=== PATIENT | female | born 1965 | race American Indian/Alaskan Native ===

== ENCOUNTER 2017-03-10 12:36 | Inpatient (IN) | payer MEDICAID ==
[2017-03-10 12:36] VITALS: BMI 21.9
--- NOTE | 2017-03-10 14:06 | C.PDOC ---
History Of Present Illness 52 y/o female with PMHx of anemia, hypertension, and CVA with residual right sided weakness, with history of symptomatic anemia with transfusion 2 months ago , sent to ER by PMD Dr. Shine for anemia. Patient also reports associated dizziness and palpitations. Denies fever, leg swelling, new weakness or numbness , nausea, vomiting, diarrhea, chest pain, shortness of breath, or other complaints. Time Seen by Provider: 03/10/17 13:34 Chief Complaint (Nursing): Abnormal Labs History Per: Patient History/Exam Limitations: no limitations Onset/Duration Of Symptoms: Days Current Symptoms Are (Timing): Still Present Recent travel outside of the [place]: No Past Medical History Reviewed: Historical Data, Nursing Documentation, Vital Signs Vital Signs: Last Vital Signs Temp 98.0 F 03/10/17 17:26 Pulse 91 H 03/10/17 17:26 Resp 20 03/10/17 17:26 BP 156/80 H 03/10/17 17:26 Pulse Ox 100 03/10/17 18:28 - Medical History PMH: Asthma, CVA, Diabetes, HTN - [facility] Procedures TRANSFUSE NONAUT RED BLOOD CELLS IN PERIPH VEIN, PERC (01/14/17) Family History: States: Unknown Family Hx - Social History Hx Alcohol Use: No Hx Substance Use: No Review Of Systems Except As Marked, All Systems Reviewed And Found Negative. Constitutional: Negative for: Fever, Chills Cardiovascular: Positive for: Other (elevated heart rate). Negative for: Chest Pain, Palpitations Respiratory: Negative for: Cough, Shortness of Breath, Wheezing Gastrointestinal: Negative for: Nausea, Vomiting, Abdominal Pain Skin: Negative for: Rash Neurological: Positive for: Dizziness. Negative for: Numbness, Headache Physical Exam - Physical Exam Appears: Non-toxic, No Acute Distress Skin: Warm, Dry Head: Atraumatic, Normacephalic Eye(s): bilateral: PERRL, EOMI, Conjunctiva Pale Nose: Normal Oral Mucosa: Moist Neck: Normal ROM, Supple Chest: Symmetrical Cardiovascular: Rhythm Regular, No Murmur Respiratory: Normal Breath Sounds, No Rales, No Rhonchi, No Wheezing Gastrointestinal/Abdominal: Soft, No Tenderness Extremity: Normal ROM, No Tenderness, Capillary Refill (< 2 sec.), No Swelling Neurological/Psych: Oriented x3, Normal Speech, Normal Cognition ED Course And Treatment - Laboratory Results Result Diagrams: 03/10/17 14:18 03/10/17 14:18 O2 Sat by Pulse Oximetry: 100 (RA) Pulse Ox Interpretation: Normal Progress Note: Case discussed with Dr. Shine who agrees upon plan of admission. Disposition - Disposition Disposition: HOSPITALIZED Disposition Time: 17:30 Condition: STABLE - Clinical Impression Clinical Impression: Symptomatic anemia, CHF (congestive heart failure) - PA / VOLUNTEER SERVICES COORDINATOR / Resident Statement MD/DO has reviewed & agrees with the documentation as recorded. - Scribe Statement The provider has reviewed the documentation as recorded by the Scribe Huber Verma All medical record entries made by the Sangeetha were at my direction and personally dictated by me. I have reviewed the chart and agree that the record accurately reflects my personal performance of the history, physical exam, medical decision making, and the department course for this patient. I have also personally directed, reviewed, and agree with the discharge instructions and disposition.
[2017-03-10 14:27] LABS: BASO % 0.4 % (0.0-2.0); EOS % 0.5 % (0.0-4.0); HEMATOCRIT 17.1 % (34.0-47.0); LYMPH # 2.3 K/uL (1.0-4.3); LYMPH % 32.5 % (20.0-40.0); MEAN CORPUSCULAR HGB CONC 30.7 g/dL (33.0-37.0); MEAN PLATELET VOLUME 8.6 fL (7.2-11.7); MONO # 0.5 K/uL (0.0-0.8); RED CELL DISTRIBUTION WIDTH 28.8 % (11.5-14.5)
[2017-03-10 14:33] LABS: CHLORIDE 99 mmol/L (98-107)
[2017-03-10 14:34] LABS: POTASSIUM 3.6 mmol/L (3.6-5.2); SODIUM 134 mmol/L (132-148)
[2017-03-10 14:35] LABS: MEAN CELL VOLUME 71.5 fL (81.0-99.0)
[2017-03-10 14:36] LABS: ALB/GLOB RATIO 1.1 (1.0-2.1); AST/SGOT 23 U/L (14-36); BILIRUBIN,TOTAL 0.5 mg/dL (0.2-1.3); BLOOD UREA NITROGEN 13 mg/dL (7-17); CARBON DIOXIDE 27 mmol/L (22-30); GFR AFRICAN-AMERICAN > 60; TOTAL PROTEIN 7.1 g/dL (6.3-8.3)
[2017-03-10 14:37] LABS: ALKALINE PHOSPHATASE 70 U/L (38-126); ALT/SGPT 26 U/L (9-52); CALCIUM 8.8 mg/dl (8.6-10.4); GLUCOSE,RANDOM 181 mg/dL (65-105)
[2017-03-10 14:41] LABS: INR 1.1
[2017-03-10] MEDS: Pantoprazole 80 MG in Sodium Chloride 0.9% 100 ML IVP SCH (20:30)
[2017-03-10] MEDS: (Lantus) Insulin Glargine, Recombinant SC SCH (23:38)
[2017-03-11] MEDS: Pantoprazole 80 MG in Sodium Chloride 0.9% 100 ML IVP SCH ×2 (04:17→17:39)
[2017-03-11 11:54] LABS: CHLORIDE 100 mmol/L (98-107); SODIUM 133 mmol/L (132-148)
[2017-03-11 11:57] LABS: BLOOD UREA NITROGEN 10 mg/dL (7-17); CARBON DIOXIDE 24 mmol/L (22-30); GFR AFRICAN-AMERICAN > 60
[2017-03-11 11:58] LABS: GLUCOSE,RANDOM 301 mg/dL (65-105)
--- NOTE | 2017-03-11 14:06 | US ---
Abdominal ultrasound History: Anemia. Comparison: None available. Technique: Real-time sonography was performed through the abdomen. Findings: Liver: 16.7 centimeters in length. Increased echogenicity of the hepatic parenchymal cortex suggestive for fatty infiltration versus hepatic parenchymal disease. Gallbladder appears preserved. Normal wall thickness of 1.7 millimeters. Common bile duct measures 3.2 millimeters, within normal limits. Limited visualization of the pancreas. Spleen measures 9.8 centimeters in length, within normal limits. Visualized aorta and IVC are preserved. Right kidney: 10.4 x 5.7 x 5.1 centimeters, within normal limits. Left Kidney: 11.3 x 6.0 x 4.7 centimeters, within normal limits. Impression: Increased echogenicity of the hepatic parenchymal cortex suggestive for fatty infiltration versus hepatic parenchymal disease. Clinical correlation. Limited visualization of the pancreas.
--- NOTE | 2017-03-11 14:07 | US ---
Pelvic ultrasound History: Menstrual bleeding. Comparison: None available. Technique: Real-time sonography was performed through the pelvis utilizing transabdominal and transvaginal techniques. Findings: Uterus: 16.5 x 6.9 x 0.8 centimeters. Heterogeneous echotexture. Anteverted. Heterogeneous lesion within the mid uterus measuring 4.4 x 3.3 x 4.4 centimeters suggestive for a prominent fibroid. Thickened and heterogeneous endometrium measuring 1.8 centimeters. No free fluid in the pelvic cul-de-sac. Right ovary: 3.9 x 2.7 x 3.3 centimeters. Normal flow. Left ovary: 3.0 x 2.2 x 2.9 centimeters. Normal flow. Impression: Thickened heterogeneous endometrium measuring up to 1.8 cm. Clinical correlation. 4.4 centimeter heterogeneous lesion in the mid uterus suggestive for a prominent fibroid lesion. Enlarged heterogeneous uterus.
[2017-03-11 17:55] LABS: BASO % 0.4 % (0.0-2.0); EOS # 0.1 K/uL (0.0-0.7); EOS % 1.3 % (0.0-4.0); HEMATOCRIT 26.5 % (34.0-47.0); LYMPH % 32.3 % (20.0-40.0); MEAN CORPUSCULAR HEMOGLOBIN 24.5 pg (27.0-31.0); MEAN CORPUSCULAR HGB CONC 31.8 g/dL (33.0-37.0); MEAN PLATELET VOLUME 8.8 fL (7.2-11.7); MONO # 0.5 K/uL (0.0-0.8); MONO % 8.1 % (0.0-10.0); NRBC % 0.2 % (0.0-2.0); RED CELL DISTRIBUTION WIDTH 25.5 % (11.5-14.5); WHITE BLOOD COUNT 6.2 K/uL (4.8-10.8)
[2017-03-11 17:56] LABS: MEAN CELL VOLUME 76.9 fL (81.0-99.0)
[2017-03-11 18:04] LABS: IRON 27 ug/dL (37-170)
--- NOTE | 2017-03-11 18:16 | CP.PCM.CON ---
History of Present Illness - History of Present Illness History of Present Illness: 52 year old female with a history of DM, CVA with right sided weakness, admitted with symptomatic anemia. The patient was to have a hgb of 5.3. She is currently s/p PRBC transfusion and reports to feeling better. She denies abnormal bleeding and bruising. She does not feel her periods are heavy. She denies chest pain and shortness of breath. Past medical history: CVA, DM Past surgical history: x 2 Family history: Denies hematologic and oncologic problems Social history: Denies tobacco, alcohol, and illicit drug use. Allergies: NKA Review of systems: All remaining review of systems including HEENT, cardiovascular, respiratory, gastrointestinal, genitourinary, musculoskeletal, dermatologic, neurologic, and psychiatric are negative unless mentioned in the HPI. Past Patient History - Past Medical History & Family History Past Medical History?: Yes - Past Social History Smoking Status: Never Smoked - CARDIAC Hx Hypertension: Yes - PULMONARY Hx Asthma: Yes - NEUROLOGICAL Hx Neurological Disorder: Yes HX Cerebrovascular Accident: Yes (11/2015) Hx Dizziness: No Hx Meningitis: No Hx Paralysis: No Hx Syncope: No Hx Vertigo: No - HEENT Hx HEENT Problems: No - ENDOCRINE/METABOLIC Hx Endocrine Disorders: Yes Hx Adrenal Cancer: No Hx Diabetes Insipidus: No Hx Diabetes Mellitus Type 1: Yes Hx Diabetes Mellitus Type 2: No Hx Systemic Lupus Erythematosus: No - HEMATOLOGICAL/ONCOLOGICAL Hx Blood Disorders: No - INTEGUMENTARY Hx Dermatological Problems: No - MUSCULOSKELETAL/RHEUMATOLOGICAL Hx Falls: No - GASTROINTESTINAL Hx Gastrointestinal Disorders: No - GENITOURINARY/GYNECOLOGICAL Hx Genitourinary Disorders: No - PSYCHIATRIC Hx Substance Use: No - SURGICAL HISTORY Hx Surgeries: Yes Hx Abdominal Aortic Aneurysm Repair: No Hx Amputation: No Hx Angiogram: No Hx Angioplasty: No Hx Arteriovenous Shunt: No Hx Arthroscopy: No Hx Bile Duct Stent: No Hx Breast Biopsy: No Hx Cataract Extraction: No Hx Cardiac Catheterization: No Hx Section: Yes (X2) Hx Dilation and Curettage: No Hx Eye Surgery: No Hx Femoral-Popliteal Bypass Graft: No Hx Gastric Bypass Surgery: No Hx Herniorrhaphy: No Hx Hysterectomy: No Hx Joint Replacement: No Hx Kidney Transplant: No Hx Liver Transplant: No Hx Mastectomy: No Hx Musculoskeletal Surgery: No Hx Open Heart Surgery: No Hx Open Reduction Internal Fixation: No Hx Orthopedic Surgery: No Hx Parathyroidectomy: No Hx Penile Implant: No Hx Pulmonary Surgery: No Hx Splenectomy: No Hx Thyroidectomy: No Hx Tubal Ligation: No Hx Valve Replacement: No Hx Vascular Surgery: No Hx Vascular Access Device: No - ANESTHESIA Hx Anesthesia: No Hx Anesthesia Reactions: No Hx Malignant Hyperthermia: No Meds Allergies/Adverse Reactions: Allergies Allergy/AdvReac Type Severity Reaction Status Date / Time No Known Allergies Allergy Verified 03/10/17 12:45 - Medications Medications: Current Medications Ferrous Sulfate (Feosol) 325 mg PO BID [facility] Last Admin: 03/11/17 17:34 Dose: 325 mg Pantoprazole Sodium 80 mg/ (Sodium Chloride) 100 mls @ 10 mls/hr IVP .Q10H [facility] PRN Reason: 8 MG/HR Last Admin: 03/11/17 17:39 Dose: 10 mls/hr Insulin Glargine (Lantus) 10 unit SC HS [facility] Last Admin: 03/10/17 23:38 Dose: 10 u Losartan Potassium (Cozaar) 100 mg PO DAILY [facility] Last Admin: 03/11/17 10:30 Dose: 100 mg Metoprolol Tartrate (Lopressor) 25 mg PO BID [facility] Last Admin: 03/11/17 17:39 Dose: 25 mg Physical Exam - Head Exam Head Exam: ATRAUMATIC - Eye Exam Eye Exam: Normal appearance - ENT Exam ENT Exam: Mucous Membranes Dry - Respiratory Exam Respiratory Exam: NORMAL BREATHING PATTERN - Cardiovascular Exam Cardiovascular Exam: +S1, +S2 - GI/Abdominal Exam GI & Abdominal Exam: Normal Bowel Sounds - Neurological Exam Neurological exam: Oriented x3 - Psychiatric Exam Psychiatric exam: Normal Affect, Normal Mood - Skin Skin Exam: Warm Results - Vital Signs Recent Vital Signs: Last Vital Signs Temp 98.4 F 03/11/17 17:22 Pulse 78 03/11/17 17:22 Resp 20 03/11/17 17:22 BP 176/90 H 03/11/17 17:39 Pulse Ox 100 03/11/17 17:22 - Labs Result Diagrams: 03/10/17 17:35 03/11/17 11:39 Labs: Laboratory Results - last 24 hr 03/10/17 03/10/17 03/11/17 17:35 21:52 07:30 WBC 6.2 RBC 3.44 L Hgb 8.4 L D Hct 26.5 L MCV 76.9 L D MCH 24.5 L MCHC 31.8 L RDW 25.5 H Plt Count 309 MPV 8.8 Neut % (Auto) 57.9 Lymph % (Auto) 32.3 [place] % (Auto) 8.1 Eos % (Auto) 1.3 Baso % (Auto) 0.4 Neut # 3.6 Lymph # 2.0 [place] # 0.5 Eos # 0.1 Baso # 0.0 Sodium Potassium Chloride Carbon Dioxide Anion Gap BUN Creatinine Est GFR ( Amer) Est GFR (Non-Af Amer) POC Glucose (mg/dL) 244 H 202 H Random Glucose Calcium Iron TIBC % Saturation 03/11/17 03/11/17 03/11/17 11:32 11:39 16:43 WBC RBC Hgb Hct MCV MCH MCHC RDW Plt Count MPV Neut % (Auto) Lymph % (Auto) [place] % (Auto) Eos % (Auto) Baso % (Auto) Neut # Lymph # [place] # Eos # Baso # Sodium 133 Potassium 5.0 Chloride 100 Carbon Dioxide 24 Anion Gap 15 BUN 10 Creatinine 0.5 L Est GFR ( Amer) > 60 Est GFR (Non-Af Amer) > 60 POC Glucose (mg/dL) 333 H 337 H Random Glucose 301 H Calcium 9.0 Iron TIBC % Saturation 03/11/17 17:35 WBC RBC Hgb Hct MCV MCH MCHC RDW Plt Count MPV Neut % (Auto) Lymph % (Auto) [place] % (Auto) Eos % (Auto) Baso % (Auto) Neut # Lymph # [place] # Eos # Baso # Sodium Potassium Chloride Carbon Dioxide Anion Gap BUN Creatinine Est GFR ( Amer) Est GFR (Non-Af Amer) POC Glucose (mg/dL) Random Glucose Calcium Iron 27 L TIBC 366 % Saturation 7 L Assessment & Plan (1) Anemia Assessment and Plan: history of iron deficiency anemia felt to be secondary to menorrhagia will repeat ferritin level s/p PRBC transfusion will start IV iron Thank you for this interesting consult. Status: Acute
[2017-03-11] MEDS: Ferric Sodium Gluconat Complex 62.5 mg/5 ml Vial IVPB SCH (19:21)
[2017-03-11 21:13] LABS: FOLATE > 20.0 ng/mL
[2017-03-11] MEDS: (Lantus) Insulin Glargine, Recombinant SC SCH (21:49)
[2017-03-12] MEDS: Pantoprazole 80 MG in Sodium Chloride 0.9% 100 ML IVP SCH ×2 (02:59→03:46)
--- NOTE | 2017-03-12 06:54 | HP ---
The patient is a 52-year-old female with history of hypertension, history of recent CVA and anemia. The patient was seen in my office about a week before weakness and shortness of breath on exert ion. Blood word was done on the patient that has shown that the patient has a very low hemoglobin th at was 6.4. For the whole week the patient was called, but there was no answer and the family was al so contacted. The patient came in again yesterday on her own and explained to her condition. The patient agreed to go to the Emergency Room for admission . ALLERGIES: The patient has no know allergies. PAST MEDICAL HISTORY: History of hypertension, history of CVA in the past, history of diabetes and g ait dysfunction. SOCIAL HISTORY: The patient has children, but no smoking or alcohol abuse. FAMILY HISTORY: There is no inherited disease. REVIEW OF SYSTEMS: RESPIRATORY: The patient had been having some shortness of breath on exertion. CARDIOVASCULAR: The patient is having some palpitations at times. GASTROINTESTINAL: The patient denied any melena and complained of some flatulence at times. GENITOURINARY: The patient complaining of . Actually, the patient has her menses as we speak. NEUROLOGIC: The patient feels very weak. PHYSICAL EXAMINATION: GENERAL: The patient is alert, awake and oriented. VITAL SIGNS: The blood pressure is 176/90, pulse 78, respirations 20, temperature is 98.4. EYES: The conjunctivae are very pale. NECK: Supple, no JVD. LUNGS: Clear. HEART: Tachycardic and positive murmur. ABDOMEN: Soft and nontender. No guarding or mass. The patient, as I mentioned, has her menses. EXTREMITIES: There is +1 pitting edema. LABORATORY: showed WBC 7, hemoglobin 5.3, hematocrit 17.1 and platelet 203. Coag: , INR 1.1, 26. Chemistry: Sodium 133, potassium 5, chloride 100, bicarb 24, BUN 10, creatinine 0.5, glucose is 301. Iron is 27. O2 saturation is 7. The patient will be admitted severe anemia, hypertension, diabetes and hyperlipidemia. The pat ient mentioned a history of CVA. The patient had a consult with barbara Flowers. Dalton Shine MD cc: [id number] TT: 03/11/2017 21:35:34 mn
[2017-03-12] MEDS: Ferric Sodium Gluconat Complex 62.5 mg/5 ml Vial IVPB SCH (09:53)
[2017-03-12] MEDS: (Novolog) Insulin Aspart, Recombinant 100 u/ml 10 ml vial SC SCH ×3 (12:49→22:52)
--- NOTE | 2017-03-12 19:31 | PN ---
DATE: 03/12/2017 SUBJECTIVE: Today, the patient is alert and awake. Denies any shortness of breath. No chest pain, no dizziness. The patient complaining only of generalized weakness. PHYSICAL EXAMINATION: VITAL SIGNS: The patient has a blood pressure of 170/79, pulse is 85, respirations 20, temperature 9 8.3. HEAD: Normocephalic. Conjunctivae is pinkish. LUNGS: Clear. HEART: Regular rate and rhythm. ABDOMEN: Soft, positive bowel sounds, nontender, no palpable mass. EXTREMITIES: There is no edema noted. LABORATORY DATA: The patient had some blood tests done. Today WBC is 6.2, hemoglobin 8.4, hematocri t 26.5 and platelet is 309. The white count is 2.1. Chemistry: Glucose is 200, iron 27, TIBC 366, . PLAN: We are going to give this patient IV iron and also stool for occult blood is not done. The zahraa dias has menses at this point. The case was discussed with Savanah Casey, the nurse practitioner, uriel cooper we are going also to verify with Dr. Lomeli to [facility] Dalton Shine MD cc: [id number] TT: 03/12/2017 19:30:56 Confirmation # [id number] Dictation # [id number] jeronimo
[2017-03-12] MEDS: (Lantus) Insulin Glargine, Recombinant SC SCH (22:52)
--- NOTE | 2017-03-13 00:34 | CARD ---
APPROVED REPORT EKG Measurement Heart [id number] <Conclusion> Normal sinus rhythm normal ecg
[2017-03-13 06:25] LABS: BASO % 0.3 % (0.0-2.0); EOS # 0.1 K/uL (0.0-0.7); EOS % 0.7 % (0.0-4.0); HEMATOCRIT 27.3 % (34.0-47.0); LYMPH # 1.3 K/uL (1.0-4.3); LYMPH % 12.1 % (20.0-40.0); MEAN CELL VOLUME 75.5 fL (81.0-99.0); MEAN CORPUSCULAR HEMOGLOBIN 23.7 pg (27.0-31.0); MEAN CORPUSCULAR HGB CONC 31.3 g/dL (33.0-37.0); MONO # 0.7 K/uL (0.0-0.8); MONO % 6.5 % (0.0-10.0); NRBC % 0.1 % (0.0-2.0); RED CELL DISTRIBUTION WIDTH 27.1 % (11.5-14.5); WHITE BLOOD COUNT 10.4 K/uL (4.8-10.8)
[2017-03-13 06:46] LABS: CHLORIDE 94 mmol/L (98-107); POTASSIUM 3.7 mmol/L (3.6-5.2); SODIUM 132 mmol/L (132-148)
[2017-03-13 06:49] LABS: BLOOD UREA NITROGEN 11 mg/dL (7-17); CARBON DIOXIDE 29 mmol/L (22-30); GFR AFRICAN-AMERICAN > 60; GLUCOSE,RANDOM 237 mg/dL (65-105)
[2017-03-13 08:03] VITALS: O2SAT 98
[2017-03-13] MEDS: (Novolog) Insulin Aspart, Recombinant 100 u/ml 10 ml vial SC SCH ×3 (08:27→17:17)
[2017-03-13] MEDS: Ferric Sodium Gluconat Complex 62.5 mg/5 ml Vial IVPB SCH (09:43)
[2017-03-13] MEDS ORDERED: Pantoprazole 40 mg EC Tab PO SCH (10:00)
--- NOTE | 2017-03-13 13:27 | CP.PCM.PN ---
Subjective - Date & Time of Evaluation Date of Evaluation: 03/13/17 Time of Evaluation: 13:00 - Subjective Subjective: Pt seen an d examined today states feels better, denies any chest pain, sob , dizziness, palpitations, headache hgb improved after PRBC transfusion and stable - 8.5>8.4>5.3 Objective - Vital Signs/Intake and Output Vital Signs (last 24 hours): Temp Pulse Resp BP Pulse Ox 98.6 F 83 17 158/84 H 98 03/13/17 07:20 03/13/17 07:20 03/13/17 07:20 03/13/17 07:20 03/13/17 07:20 - Medications Medications: Current Medications Ferric Sodium Gluconate Complex (Ferrlecit) 125 mg IVPB DAILY [facility] Stop: 03/15/17 10:01 Last Admin: 03/13/17 09:43 Dose: 125 mg Ferrous Sulfate (Feosol) 325 mg PO BID [facility] Last Admin: 03/13/17 09:43 Dose: 325 mg Hydrochlorothiazide (Hydrodiuril) 25 mg PO DAILY [facility] Last Admin: 03/13/17 09:43 Dose: 25 mg Insulin Aspart (Novolog) 0 unit SC [facility] PRN Reason: Protocol Last Admin: 03/13/17 08:27 Dose: 3 unit Insulin Glargine (Lantus) 10 unit SC HS [facility] Last Admin: 03/12/17 22:52 Dose: 10 u Losartan Potassium (Cozaar) 100 mg PO DAILY [facility] Last Admin: 03/13/17 09:43 Dose: 100 mg Metoprolol Tartrate (Lopressor) 50 mg PO BID [facility] Last Admin: 03/13/17 09:42 Dose: 50 mg Pantoprazole Sodium (Protonix Ec Tab) 40 mg PO DAILY [facility] Last Admin: 03/13/17 09:42 Dose: 40 mg - Labs Labs: 03/13/17 06:09 03/13/17 06:09 PT 12.4 SECONDS (9.7-12.2) H 03/10/17 14:18 INR 1.1 03/10/17 14:18 APTT 26 SECONDS (21-34) 03/10/17 14:18 Assessment and Plan - Assessment and Plan (Free Text) Assessment: A/P 52 yr old female admitted for symptomatic anemia hgb improved after transfusion patient received IV iron seen by Dr. Shine , cleared for discharge home today and f/u with Dr. Shine office on next week discharge plan discussed with patient who understands and agrees with plan
[2017-03-13 15:40] VITALS: BP 155/81; PULSE 93; RESP 18; TEMP 99.3
--- NOTE | 2017-03-14 10:31 | PN ---
DATE: 03/13/2017 SUBJECTIVE: Today, the patient is alert and awake and denies any shortness of breath, no chest pain, no palpitations, no dizziness, no abdominal pain. The patient has her menses, but it is somewhat mi nimal as per patient. The patient has a blood pressure of 165/81, pulse 93, respiration 18, temperat ure 99.3. HEENT: Head is normocephalic. Eye is pinkish NECK: Supple. No JVD. LUNGS: Clear. HEART: Regular rate and rhythm. ABDOMEN: Soft, nontender, no palpable mass. Positive bowel sounds. EXTREMITIES: There is no edema. LABORATORY DATA: The patient had blood work that showed that the WBC is 10.4. Hemoglobin 8.5, hemat ocrit 27.3 and going up. Platelets 320. Chemistry showed a sodium 132, potassium 2.7, chloride 94, bicarbonate 29, BUN 11, creatinine 0.6, glucose is 227 and calcium 9. PLAN: At this point, the patient has received ___ units of blood and also had received IV . We are going to discharge the patient home. The patient will come to the office within 3-4 days to rep eat the H and H and also will follow with Dr. Black . So, the case was reviewed with Savanah brandt, the nurse practitioner. Daltonbret Shnie MD cc: [id number] TT: 03/13/2017 17:54:22 Confirmation # [id number] Dictation # [id number] dn 03/14/2017 09:29:39
--- NOTE | 2017-05-02 07:09 | DS ---
HISTORY OF PRESENT ILLNESS: The patient is a 52 years old female with history of hypertension and history of recent CVA and anemia. The patient was seen in my office and was found to have a hemoglobin of 6.4. The patient was advised to go to the hospital, which the patient has done. After I was able to look at this patient, after one week of this test, in the hospital, the patient had WBC of 7, hemoglobin of 5.3, hematocrit was 17.1, and platelet was 203, so the patient was admitted and has received blood transfusion, and the patient had consult with Dr. Matthew Black, who is the materials planning analyst/oncologist, and the patient was *------* test done and had an abdominopelvic sonogram that has shown *------* in the abdomen measuring up to 1.8 cm and the abdominal ultrasound was essentially within normal limit, so *------* and at the end, the patient from 5.3 hemoglobin the patient went to a 8.5 hemoglobin and 27.3 hematocrit. At this time, also the patient has a *------* of 2.1. At this point, the patient will be able to be discharged home on iron and folic acid. Dalton Shine MD MTDD
== END 2017-03-13 18:21 | disposition home or self-care (01) | DRG 395 ==
LOC: C.ER 12:36 → C.9E 15:06 → C.6T 18:32
PROVIDERS: ADMIT Specialist; ATTEND Specialist
PROC: 30233N1 Transfusion of Nonautologous Red Blood Cells into Peripheral Vein, Percutaneous Approach (ICD-10-PCS; principal; 2017-03-10)
DX: D50.9 Iron deficiency anemia, unspecified (principal); I11.0 Hypertensive heart disease with heart failure; I50.9 Heart failure, unspecified; I69.351 Hemiplegia and hemiparesis following cerebral infarction affecting right dominant side; E11.9 Type 2 diabetes mellitus without complications; N92.0 Excessive and frequent menstruation with regular cycle

== ENCOUNTER 2018-10-30 15:32 | Inpatient (IN) | payer MEDICAID ==
[2018-10-30 15:33] VITALS: BMI 21.9
[2018-10-30] MEDS ORDERED: Labetalol 25mg/5ml Syringe IVP STA ×2 (16:08→17:07)
--- NOTE | 2018-10-30 16:09 | C.PDOC ---
History Of Present Illness 53 y/o female pt with hx of HTN, DM and x2 presents to the ER c/o vomiting x2, dizziness and loss of appetite. Pt denies chest pain, SOB, headache, abdominal pain. Pt is non-compliant with her medications. Time Seen by Provider: 10/30/18 15:52 Chief Complaint (Nursing): High Blood Pressure History Per: Patient History/Exam Limitations: no limitations Onset/Duration Of Symptoms: Days Current Symptoms Are (Timing): Still Present Past Medical History Reviewed: Historical Data, Nursing Documentation, Vital Signs Vital Signs: Last Vital Signs Temp 97 F L 10/30/18 15:37 Pulse 80 10/30/18 15:45 Resp 20 10/30/18 15:37 BP 198/97 H 10/30/18 15:45 Pulse Ox 97 10/30/18 15:37 - Medical History PMH: Asthma, CVA, Diabetes, HTN - [facility] Procedures TRANSFUSE NONAUT RED BLOOD CELLS IN PERIPH VEIN, PERC (03/10/17) Family History: States: Unknown Family Hx - Social History Hx Alcohol Use: No Hx Substance Use: No Review Of Systems Except As Marked, All Systems Reviewed And Found Negative. Constitutional: Positive for: Other (loss of appetite) Cardiovascular: Negative for: Chest Pain Respiratory: Negative for: Shortness of Breath Gastrointestinal: Positive for: Vomiting (x2). Negative for: Abdominal Pain Neurological: Negative for: Headache, Dizziness Physical Exam - Physical Exam Appears: Non-toxic, No Acute Distress Skin: Warm, Dry Head: Normacephalic Eye(s): bilateral: Normal Inspection Chest: Symmetrical Cardiovascular: Rhythm Regular Respiratory: Normal Breath Sounds Gastrointestinal/Abdominal: Soft, No Tenderness Extremity: Normal ROM (x4), No Tenderness, No Pedal Edema, No Calf Tenderness, No Deformity, No Swelling Neurological/Psych: Oriented x3, Normal Speech, Normal Cognition, Normal Motor, Normal Sensation, No Other (pronator drift) ED Course And Treatment - Laboratory Results Result Diagrams: 10/30/18 16:15 10/30/18 16:15 O2 Sat by Pulse Oximetry: 97 (RA) Pulse Ox Interpretation: Normal Medical Decision Making Medical Decision Making: Plans: -- chem labs -- blood work -- pepcid -- trandate Reassess: patient feels worse, CT scan will be ordered. -- CT head Disposition - Disposition Disposition: HOSPITALIZED Disposition Time: 19:12 Condition: FAIR Forms: [employer] (Swedish) - Clinical Impression Clinical Impression: Hypertensive encephalopathy - Scribe Statement The provider has reviewed the documentation as recorded by the Scribe Kesha Arrieta Provider Attestation: All medical record entries made by the Scribe were at my direction and personally dictated by me. I have reviewed the chart and agree that the record accurately reflects my personal performance of the history, physical exam, medical decision making, and the department course for this patient. I have also personally directed, reviewed, and agree with the discharge instructions and disposition.
[2018-10-30] MEDS ORDERED: Labetalol 5mg/ml (4ml) ONE ×2 (16:18→17:16)
[2018-10-30 16:21] LABS: BASO % 0.2 % (0.0-2.0); HEMOGLOBIN 9.1 g/dL (11.0-16.0); LYMPH # 0.7 K/uL (1.0-4.3); LYMPH % 10.1 % (20.0-40.0); MEAN CELL VOLUME 68.7 fL (81.0-99.0); MEAN CORPUSCULAR HGB CONC 30.6 g/dL (33.0-37.0); MEAN PLATELET VOLUME 8.7 fL (7.2-11.7); MONO # 0.2 K/uL (0.0-0.8); MONO % 2.8 % (0.0-10.0); NEUT # 6.1 K/uL (1.8-7.0); NEUT % 86.9 % (50.0-75.0); RBC 4.35 Mil/uL (3.80-5.20); RED CELL DISTRIBUTION WIDTH 19.7 % (11.5-14.5); WHITE BLOOD COUNT 7.1 K/uL (4.8-10.8)
[2018-10-30 16:31] LABS: ALB/GLOB RATIO 1.1 (1.0-2.1); ALBUMIN 4.4 g/dL (3.5-5.0); BLOOD UREA NITROGEN 12 mg/dL (7-17); CALCIUM 9.2 mg/dl (8.6-10.4); GFR NON-AFRICAN AMERICAN > 60; LIPASE 85 U/L (23-300)
[2018-10-30 16:32] LABS: ALT/SGPT 8 U/L (9-52); AST/SGOT 31 U/L (14-36)
--- NOTE | 2018-10-30 18:05 | RAD ---
Date of service: 10/30/2018 PROCEDURE: CHEST RADIOGRAPH, 1 VIEW HISTORY: r/o infiltrate COMPARISON: 01/2017 FINDINGS: LUNGS: Clear. PLEURA: No pneumothorax or pleural fluid seen. CARDIOVASCULAR: No aortic atherosclerotic calcification present. Normal. OSSEOUS STRUCTURES: No significant abnormalities. VISUALIZED UPPER ABDOMEN: Normal. OTHER FINDINGS: None. IMPRESSION: No active disease.
[2018-10-30] MEDS ORDERED: Nitroglycerin 2% Ointment Foilpak UD TOP STA (18:08)
[2018-10-30] MEDS ORDERED: Nitroglycerin 2% Ointment Foilpak UD TOP ONE ×2 (18:21→18:22)
--- NOTE | 2018-10-30 18:56 | CT ---
Date of service: 10/30/2018 PROCEDURE: CT HEAD WITHOUT CONTRAST. HISTORY: Dizziness and hypertension. COMPARISON: None available. TECHNIQUE: Axial computed tomography images were obtained through the head/brain without intravenous contrast. Radiation dose: Total exam DLP = 1074.4 mGy-cm. This CT exam was performed using one or more of the following dose reduction techniques: Automated exposure control, adjustment of the mA and/or kV according to patient size, and/or use of iterative reconstruction technique. FINDINGS: HEMORRHAGE: No intracranial hemorrhage. BRAIN: There are areas of low attenuation seen in the right cerebellar hemisphere which may represent acute-subacute infarct changes. Clinical correlation with history recommended. Follow-up MRI suggested. In addition, there is a chronic infarct left frontal lobe involving the left basal ganglia including the left caudate head and subinsular region. Probable chronic infarct changes right posterior parietal subcortical region frontal region.. There is ex vacuo dilatation of the left lateral ventricle particularly the left frontal horn and left temporal horn. Probable chronic subcortical infarct changes right frontal region. Mild chronic periventricular white matter ischemic changes are also felt be present. Moderate generalized volume loss. VENTRICLES: No obstructive hydrocephalus. CALVARIUM: Calvarium intact. PARANASAL SINUSES: Unremarkable as visualized. No significant inflammatory changes. MASTOID AIR CELLS: Unremarkable as visualized. No inflammatory changes. OTHER FINDINGS: None. IMPRESSION: Possible acute/subacute infarct right cerebellum. Recommend follow-up MRI. Chronic left frontal lobe infarct changes involving left basal ganglia. Chronic right posterior superior parietal subcortical and to a lesser degree deep white matter infarct. Associated ex vacuo dilatation of the left ventricle as detailed above. Probable chronic right frontal subcortical infarct changes.. Mild chronic periventricular white matter ischemic changes. Moderate generalized volume loss. Note these findings were discussed with Dr. Scott at approximately 6:50 p.m. with written down and read back verification.
[2018-10-30 20:05] LABS: SQUAMOUS EPITHIAL 5 /hpf (0-5); URINE BACTERIA OCC (<OCC); URINE BILIRUBIN NEGATIVE (NEGATIVE); URINE BLOOD NEGATIVE (NEGATIVE); URINE CLARITY Hazy (Clear); URINE COLOR Yellow (YELLOW); URINE GLUCOSE (UA) 3+ mg/dL (Normal); URINE LEUKOCYTE ESTERASE NEG Leu/uL (Negative); URINE PROTEIN 3+ mg/dL (NEGATIVE); URINE UROBILINOGEN NORMAL mg/dL (0.2-1.0)
[2018-10-30] MEDS ORDERED: Dextrose 50% SYRINGE Inj (50 ml) IV PRN (20:42)
[2018-10-30] MEDS ORDERED: Glucagon Recombinant 1 mg Inj IM PRN (20:42)
[2018-10-30] MEDS: hydrALAZINE 12.5 mg Tab PO SCH (21:59)
[2018-10-30] MEDS: (Novolog) Insulin Aspart, Recombinant 100 u/ml 10 ml vial SC SCH (22:06)
[2018-10-31 08:07] LABS: BASO % 0.6 % (0.0-2.0); EOS % 0.1 % (0.0-4.0); HEMOGLOBIN 8.1 g/dL (11.0-16.0); LYMPH # 1.2 K/uL (1.0-4.3); MEAN CORPUSCULAR HEMOGLOBIN 21.1 pg (27.0-31.0); MEAN CORPUSCULAR HGB CONC 30.7 g/dL (33.0-37.0); MONO # 0.3 K/uL (0.0-0.8); MONO % 7.4 % (0.0-10.0); NEUT # 3.2 K/uL (1.8-7.0); NEUT % 66.9 % (50.0-75.0); NRBC % 0.1 % (0.0-2.0); RBC 3.82 Mil/uL (3.80-5.20); RED CELL DISTRIBUTION WIDTH 19.5 % (11.5-14.5); WHITE BLOOD COUNT 4.7 K/uL (4.8-10.8)
[2018-10-31 08:14] LABS: MEAN CELL VOLUME 68.7 fL (81.0-99.0)
[2018-10-31] MEDS: (Novolog) Insulin Aspart, Recombinant 100 u/ml 10 ml vial SC SCH ×3 (08:26→17:45)
[2018-10-31 08:31] LABS: ALB/GLOB RATIO 1.1 (1.0-2.1); ALBUMIN 3.7 g/dL (3.5-5.0); ALT/SGPT 10 U/L (9-52); AST/SGOT 14 U/L (14-36); BLOOD UREA NITROGEN 18 mg/dL (7-17); GFR NON-AFRICAN AMERICAN > 60; HDL CHOLESTEROL 50 mg/dL (30-70)
[2018-10-31 08:37] LABS: LDL CHOLESTEROL 218 mg/dL (0-129)
[2018-10-31] MEDS: hydrALAZINE 12.5 mg Tab PO SCH (10:12)
[2018-10-31 13:04] LABS: AMYLASE 57 U/L (30-110); LIPASE 72 U/L (23-300)
--- NOTE | 2018-10-31 14:41 | CP.PCM.CON ---
History of Present Illness - History of Present Illness History of Present Illness: Neurology consult called by Dr. Meeahn. Neurology consult dictated. 53 yr old woman who is s/p c section, here for dizziness and headache for several days duration. On examination today, patient's headache has improved and she is much better A/p: Patient with hypertensive encephalopathy. She has a normal neuro exam and will need MRI Brain without contrast. COntrol blood pressure. Thank you Dr. De La Torre Neurology Past Patient History - Past Medical History & Family History Past Medical History?: Yes - Past Social History Smoking Status: Never Smoked - CARDIAC Hx Hypertension: Yes - PULMONARY Hx Asthma: Yes - NEUROLOGICAL HX Cerebrovascular Accident: Yes - HEENT Hx HEENT Problems: No - ENDOCRINE/METABOLIC Hx Endocrine Disorders: Yes Hx Adrenal Cancer: No Hx Diabetes Insipidus: No Hx Diabetes Mellitus Type 1: Yes Hx Diabetes Mellitus Type 2: No Hx Systemic Lupus Erythematosus: No - HEMATOLOGICAL/ONCOLOGICAL Hx Blood Disorders: No - INTEGUMENTARY Hx Dermatological Problems: No - MUSCULOSKELETAL/RHEUMATOLOGICAL Hx Falls: No - GASTROINTESTINAL Hx Gastrointestinal Disorders: No - GENITOURINARY/GYNECOLOGICAL Hx Genitourinary Disorders: No - PSYCHIATRIC Hx Substance Use: No - SURGICAL HISTORY Hx Surgeries: Yes Hx Abdominal Aortic Aneurysm Repair: No Hx Amputation: No Hx Angiogram: No Hx Angioplasty: No Hx Arteriovenous Shunt: No Hx Arthroscopy: No Hx Bile Duct Stent: No Hx Breast Biopsy: No Hx Cataract Extraction: No Hx Cardiac Catheterization: No Hx Section: Yes (X2) Hx Dilation and Curettage: No Hx Eye Surgery: No Hx Femoral-Popliteal Bypass Graft: No Hx Gastric Bypass Surgery: No Hx Herniorrhaphy: No Hx Hysterectomy: No Hx Joint Replacement: No Hx Kidney Transplant: No Hx Liver Transplant: No Hx Mastectomy: No Hx Musculoskeletal Surgery: No Hx Open Heart Surgery: No Hx Open Reduction Internal Fixation: No Hx Orthopedic Surgery: No Hx Parathyroidectomy: No Hx Penile Implant: No Hx Pulmonary Surgery: No Hx Splenectomy: No Hx Thyroidectomy: No Hx Tubal Ligation: No Hx Valve Replacement: No Hx Vascular Surgery: No Hx Vascular Access Device: No - ANESTHESIA Hx Anesthesia: No Hx Anesthesia Reactions: No Hx Malignant Hyperthermia: No Meds Allergies/Adverse Reactions: Allergies Allergy/AdvReac Type Severity Reaction Status Date / Time No Known Allergies Allergy Verified 03/10/17 12:45 - Medications Medications: Current Medications Aspirin (Aspirin Chewable) 81 mg PO DAILY [facility] Last Admin: 10/31/18 10:11 Dose: 81 mg Dextrose (Dextrose 50% Inj) 0 ml IV STAT PRN; Protocol PRN Reason: Hypoglycemia Protocol Dextrose (Glutose 15) 0 gm PO ONCE PRN; Protocol PRN Reason: Hypoglycemia Protocol Furosemide (Lasix) 20 mg IVP Q12 [facility] Last Admin: 10/31/18 10:11 Dose: 20 mg Glucagon (Glucagen Diagnostic Kit) 0 mg IM STAT PRN; Protocol PRN Reason: Hypoglycemia Protocol Heparin Sodium (Porcine) (Heparin) 5,000 units SC Q12 [facility] Last Admin: 10/31/18 10:12 Dose: Not Given Hydralazine HCl (Apresoline) 50 mg PO BID [facility] Dextrose (Dextrose 5% In Water 1000 Ml) 1,000 mls @ 0 mls/hr IV .Q0M PRN; Protocol PRN Reason: Hypoglycemia Protocol Insulin Aspart (Novolog) 0 unit SC ACHS [facility]; Protocol Last Admin: 10/31/18 13:00 Dose: 4 units Losartan Potassium (Cozaar) 100 mg PO DAILY [facility] Last Admin: 10/31/18 10:11 Dose: 100 mg Metoprolol Tartrate (Lopressor) 100 mg PO HS [facility] Last Admin: 10/30/18 21:59 Dose: 100 mg Rosuvastatin Calcium (Crestor) 10 mg PO HS [facility] Last Admin: 10/30/18 21:59 Dose: 10 mg Rosuvastatin Calcium (Crestor) 20 mg PO HS [facility] Last Admin: 10/30/18 22:18 Dose: Not Given Results - Vital Signs Recent Vital Signs: Last Vital Signs Temp 98.8 F 10/31/18 07:00 Pulse 84 10/31/18 07:30 Resp 20 10/31/18 07:00 BP 157/77 H 10/31/18 10:11 Pulse Ox 98 10/31/18 07:00 - Labs Result Diagrams: 10/31/18 07:55 10/31/18 07:55 Labs: Laboratory Results - last 24 hr 10/30/18 10/30/18 10/30/18 16:15 16:15 19:52 WBC 7.1 RBC 4.35 Hgb 9.1 L Hct 29.9 L MCV 68.7 L D MCH 21.0 L MCHC 30.6 L RDW 19.7 H Plt Count 260 MPV 8.7 Neut % (Auto) 86.9 H Lymph % (Auto) 10.1 L [place] % (Auto) 2.8 Eos % (Auto) 0.0 Baso % (Auto) 0.2 Neut # (Auto) 6.1 Lymph # (Auto) 0.7 L [place] # (Auto) 0.2 Eos # (Auto) 0.0 Baso # (Auto) 0.0 Differential Comment Sodium 133 Potassium 4.9 Chloride 97 L Carbon Dioxide 27 Anion Gap 15 BUN 12 Creatinine 0.4 L Est GFR ( Amer) > 60 Est GFR (Non-Af Amer) > 60 POC Glucose (mg/dL) Random Glucose 270 H Calcium 9.2 Total Bilirubin 0.5 AST 31 ALT 8 L D Alkaline Phosphatase 81 Troponin I < 0.0120 Total Protein 8.3 Albumin 4.4 Globulin 3.9 Albumin/Globulin Ratio 1.1 Triglycerides Cholesterol LDL Cholesterol Direct HDL Cholesterol Amylase Lipase 85 TSH 3rd Generation Urine Color Yellow Urine Clarity Hazy Urine pH 6.0 Ur Specific Regina 1.027 Urine Protein 3+ H Urine Glucose (UA) 3+ H Urine Ketones 1+ H Urine Blood Negative Urine Nitrate Negative Urine Bilirubin Negative Urine Urobilinogen Normal Ur Leukocyte Esterase Neg Urine WBC (Auto) 11 H Urine RBC (Auto) 4 H Ur Squamous Epith Cells 5 Urine Bacteria Occ H 10/30/18 10/31/18 10/31/18 22:04 06:18 07:55 WBC 4.7 L RBC 3.82 Hgb 8.1 L Hct 26.3 L MCV 68.7 L MCH 21.1 L MCHC 30.7 L RDW 19.5 H Plt Count 268 MPV 9.0 Neut % (Auto) 66.9 Lymph % (Auto) 25.0 Walton % (Auto) 7.4 Eos % (Auto) 0.1 Baso % (Auto) 0.6 Neut # (Auto) 3.2 Lymph # (Auto) 1.2 [place] # (Auto) 0.3 Eos # (Auto) 0.0 Baso # (Auto) 0.0 Differential Comment Sodium Potassium Chloride Carbon Dioxide Anion Gap BUN Creatinine Est GFR ( Amer) Est GFR (Non-Af Amer) POC Glucose (mg/dL) 337 H 264 H Random Glucose Calcium Total Bilirubin AST ALT Alkaline Phosphatase Troponin I Total Protein Albumin Globulin Albumin/Globulin Ratio Triglycerides Cholesterol LDL Cholesterol Direct HDL Cholesterol Amylase Lipase TSH 3rd Generation Urine Color Urine Clarity Urine pH Ur Specific Regina Urine Protein Urine Glucose (UA) Urine Ketones Urine Blood Urine Nitrate Urine Bilirubin Urine Urobilinogen Ur Leukocyte Esterase Urine WBC (Auto) Urine RBC (Auto) Ur Squamous Epith Cells Urine Bacteria 10/31/18 07:55 WBC RBC Hgb Hct MCV MCH MCHC RDW Plt Count MPV Neut % (Auto) Lymph % (Auto) [place] % (Auto) Eos % (Auto) Baso % (Auto) Neut # (Auto) Lymph # (Auto) Walton # (Auto) Eos # (Auto) Baso # (Auto) Differential Comment Sodium 133 Potassium 4.1 Chloride 96 L Carbon Dioxide 31 H Anion Gap 10 BUN 18 H Creatinine 0.6 L Est GFR ( Amer) > 60 Est GFR (Non-Af Amer) > 60 POC Glucose (mg/dL) Random Glucose 264 H Calcium 9.0 Total Bilirubin 0.4 AST 14 D ALT 10 Alkaline Phosphatase 73 Troponin I Total Protein 7.1 Albumin 3.7 Globulin 3.4 Albumin/Globulin Ratio 1.1 Triglycerides 111 Cholesterol 317 H LDL Cholesterol Direct 218 H HDL Cholesterol 50 Amylase 57 Lipase 72 TSH 3rd Generation 0.29 L Urine Color Urine Clarity Urine pH Ur Specific Regina Urine Protein Urine Glucose (UA) Urine Ketones Urine Blood Urine Nitrate Urine Bilirubin Urine Urobilinogen Ur Leukocyte Esterase Urine WBC (Auto) Urine RBC (Auto) Ur Squamous Epith Cells Urine Bacteria
[2018-10-31 18:02] LABS: IRON 30 ug/dL (37-170)
--- NOTE | 2018-10-31 18:08 | MRI ---
Date of service: 10/31/2018 PROCEDURE: MRI BRAIN WITHOUT CONTRAST HISTORY: Follow-up COMPARISON: None available. TECHNIQUE: Multiplanar, multisequence MR images of the brain were obtained without intravenous contrast enhancement. FINDINGS: HEMORRHAGE: None DWI: No evidence of an acute or early subacute infarction. BRAIN PARENCHYMA: Small chronic infarct right frontal lobe low superolaterally. Larger chronic infarct left frontal lobe and basal ganglia. Finally an additional small infarct is suspect in the right parietal and temporoparietal junction. Diffuse cerebral atrophy chronic microangiopathy are reiterated. VENTRICLES: Unremarkable. No hydrocephalus. CRANIUM: Unremarkable. ORBITS: Grossly unremarkable. PARANASAL SINUSES/MASTOIDS: Clear VASCULAR SYSTEM: Skull base flow voids intact. OTHER FINDINGS: None. IMPRESSION: No acute or subacute brain infarction appreciated. Multifocal chronic infarctions are identified at the left frontal lobe and basal ganglia, right frontal lobe and right parietal lobes as well as right temporoparietal junction. Diffuse cerebral atrophy chronic microangiopathy reiterated.
[2018-10-31 18:11] LABS: % IRON SATURATION 8 (20-55); TOTAL IRON BINDING CAPACITY 388 ug/dL (250-450)
--- NOTE | 2018-10-31 20:31 | CP.PCM.CON ---
History of Present Illness - History of Present Illness History of Present Illness: uncontrolled iddm Past Patient History - Past Medical History & Family History Past Medical History?: Yes - Past Social History Smoking Status: Never Smoked - CARDIAC Hx Hypertension: Yes - PULMONARY Hx Asthma: Yes - NEUROLOGICAL HX Cerebrovascular Accident: Yes - HEENT Hx HEENT Problems: No - ENDOCRINE/METABOLIC Hx Endocrine Disorders: Yes Hx Adrenal Cancer: No Hx Diabetes Insipidus: No Hx Diabetes Mellitus Type 1: Yes Hx Diabetes Mellitus Type 2: No Hx Systemic Lupus Erythematosus: No - HEMATOLOGICAL/ONCOLOGICAL Hx Blood Disorders: No - INTEGUMENTARY Hx Dermatological Problems: No - MUSCULOSKELETAL/RHEUMATOLOGICAL Hx Falls: No - GASTROINTESTINAL Hx Gastrointestinal Disorders: No - GENITOURINARY/GYNECOLOGICAL Hx Genitourinary Disorders: No - PSYCHIATRIC Hx Substance Use: No - SURGICAL HISTORY Hx Surgeries: Yes Hx Abdominal Aortic Aneurysm Repair: No Hx Amputation: No Hx Angiogram: No Hx Angioplasty: No Hx Arteriovenous Shunt: No Hx Arthroscopy: No Hx Bile Duct Stent: No Hx Breast Biopsy: No Hx Cataract Extraction: No Hx Cardiac Catheterization: No Hx Section: Yes (X2) Hx Dilation and Curettage: No Hx Eye Surgery: No Hx Femoral-Popliteal Bypass Graft: No Hx Gastric Bypass Surgery: No Hx Herniorrhaphy: No Hx Hysterectomy: No Hx Joint Replacement: No Hx Kidney Transplant: No Hx Liver Transplant: No Hx Mastectomy: No Hx Musculoskeletal Surgery: No Hx Open Heart Surgery: No Hx Open Reduction Internal Fixation: No Hx Orthopedic Surgery: No Hx Parathyroidectomy: No Hx Penile Implant: No Hx Pulmonary Surgery: No Hx Splenectomy: No Hx Thyroidectomy: No Hx Tubal Ligation: No Hx Valve Replacement: No Hx Vascular Surgery: No Hx Vascular Access Device: No - ANESTHESIA Hx Anesthesia: No Hx Anesthesia Reactions: No Hx Malignant Hyperthermia: No Meds Allergies/Adverse Reactions: Allergies Allergy/AdvReac Type Severity Reaction Status Date / Time No Known Allergies Allergy Verified 03/10/17 12:45 - Medications Medications: Current Medications Aspirin (Aspirin Chewable) 81 mg PO DAILY [facility] Last Admin: 10/31/18 10:11 Dose: 81 mg Dextrose (Dextrose 50% Inj) 0 ml IV STAT PRN; Protocol PRN Reason: Hypoglycemia Protocol Dextrose (Glutose 15) 0 gm PO ONCE PRN; Protocol PRN Reason: Hypoglycemia Protocol Furosemide (Lasix) 20 mg IVP Q12 [facility] Last Admin: 10/31/18 10:11 Dose: 20 mg Glucagon (Glucagen Diagnostic Kit) 0 mg IM STAT PRN; Protocol PRN Reason: Hypoglycemia Protocol Heparin Sodium (Porcine) (Heparin) 5,000 units SC Q12 [facility] Last Admin: 10/31/18 10:12 Dose: Not Given Hydralazine HCl (Apresoline) 50 mg PO BID [facility] Last Admin: 10/31/18 17:45 Dose: 50 mg Dextrose (Dextrose 5% In Water 1000 Ml) 1,000 mls @ 0 mls/hr IV .Q0M PRN; Protocol PRN Reason: Hypoglycemia Protocol Insulin Aspart (Novolog) 0 unit SC ACHS [facility]; Protocol Last Admin: 10/31/18 17:45 Dose: 5 units Losartan Potassium (Cozaar) 100 mg PO DAILY [facility] Last Admin: 10/31/18 10:11 Dose: 100 mg Metoprolol Tartrate (Lopressor) 100 mg PO HS [facility] Last Admin: 10/30/18 21:59 Dose: 100 mg Rosuvastatin Calcium (Crestor) 40 mg PO HS [facility] Results - Vital Signs Recent Vital Signs: Last Vital Signs Temp 98.2 F 10/31/18 15:15 Pulse 85 10/31/18 15:15 Resp 20 10/31/18 15:15 BP 145/77 10/31/18 15:15 Pulse Ox 99 10/31/18 15:15 - Labs Result Diagrams: 10/31/18 07:55 10/31/18 07:55 Labs: Laboratory Results - last 24 hr 10/30/18 10/31/18 10/31/18 22:04 06:18 07:55 WBC 4.7 L RBC 3.82 Hgb 8.1 L Hct 26.3 L MCV 68.7 L MCH 21.1 L MCHC 30.7 L RDW 19.5 H Plt Count 268 MPV 9.0 Neut % (Auto) 66.9 Lymph % (Auto) 25.0 [place] % (Auto) 7.4 Eos % (Auto) 0.1 Baso % (Auto) 0.6 Neut # (Auto) 3.2 Lymph # (Auto) 1.2 [place] # (Auto) 0.3 Eos # (Auto) 0.0 Baso # (Auto) 0.0 Differential Comment Sodium Potassium Chloride Carbon Dioxide Anion Gap BUN Creatinine Est GFR ( Amer) Est GFR (Non-Af Amer) POC Glucose (mg/dL) 337 H 264 H Random Glucose Calcium Iron TIBC % Saturation Total Bilirubin AST ALT Alkaline Phosphatase Total Protein Albumin Globulin Albumin/Globulin Ratio Triglycerides Cholesterol LDL Cholesterol Direct HDL Cholesterol Amylase Lipase TSH 3rd Generation 10/31/18 10/31/18 10/31/18 07:55 12:41 16:38 WBC RBC Hgb Hct MCV MCH MCHC RDW Plt Count MPV Neut % (Auto) Lymph % (Auto) [place] % (Auto) Eos % (Auto) Baso % (Auto) Neut # (Auto) Lymph # (Auto) [place] # (Auto) Eos # (Auto) Baso # (Auto) Differential Comment Sodium 133 Potassium 4.1 Chloride 96 L Carbon Dioxide 31 H Anion Gap 10 BUN 18 H Creatinine 0.6 L Est GFR ( Amer) > 60 Est GFR (Non-Af Amer) > 60 POC Glucose (mg/dL) 329 H 378 H Random Glucose 264 H Calcium 9.0 Iron TIBC % Saturation Total Bilirubin 0.4 AST 14 D ALT 10 Alkaline Phosphatase 73 Total Protein 7.1 Albumin 3.7 Globulin 3.4 Albumin/Globulin Ratio 1.1 Triglycerides 111 Cholesterol 317 H LDL Cholesterol Direct 218 H HDL Cholesterol 50 Amylase 57 Lipase 72 TSH 3rd Generation 0.29 L 10/31/18 17:30 WBC RBC Hgb Hct MCV MCH MCHC RDW Plt Count MPV Neut % (Auto) Lymph % (Auto) [place] % (Auto) Eos % (Auto) Baso % (Auto) Neut # (Auto) Lymph # (Auto) [place] # (Auto) Eos # (Auto) Baso # (Auto) Differential Comment Sodium Potassium Chloride Carbon Dioxide Anion Gap BUN Creatinine Est GFR ( Amer) Est GFR (Non-Af Amer) POC Glucose (mg/dL) Random Glucose Calcium Iron 30 L TIBC 388 % Saturation 8 L Total Bilirubin AST ALT Alkaline Phosphatase Total Protein Albumin Globulin Albumin/Globulin Ratio Triglycerides Cholesterol LDL Cholesterol Direct HDL Cholesterol Amylase Lipase TSH 3rd Generation Assessment & Plan (1) Diabetes mellitus with diabetic neuropathy, with long-term current use of insulin Assessment and Plan: Endocrine consult reason for consult: uncontrolled diabetes Source: patient and chart review Raghavendra Newman is 53 y/o admitted for hypertensive encephalopathy as per pt. has DM x 10 years (+) neuropathy , (-) retinopathy , (-) nephropathy (-) CAD (-) PVD outpatient diabetes management regimen : Lantus & metformin not sure of the dose or frequency inpatient diabetes management regimen: lispro scale blood glucose log :200-300 s/p nausea & vomiting today NO hypoglycemia Allergy NKDA Past medical history:HTN , hyperlipidemia Past surgical history: C- section Psychiatry history: denies Social history: denies smoking , ETOH use or illicit drug use Family history: mother with dm ROS: Constitutional: denies fever, tiredness/weakness. HEENT: denies earache, change in voice .Respiratory: denies cough, sob . CVS :no chest pain, no palpitations . Abdomen: no abdominal pain, (+) nausea /vomiting, no change bowel movement. [employer] : denies light-headedness, dizziness. Extremities: no edema, no tremors. Skin: no itching, no rash Physical exam Well-developed AAO x3 , ,NAD , food by bed side , only ate less than 25 % of the meal VSS HEENT: norm cephalic, atraumatic, no lid lag , no exophthalmos NECK: supple, no palpable lymphadenopathy THYROID: no palpable thyromegaly, not tender CHEST: fair air entry, bilateral, CVS: S1,S2 ABDOMEN: bowel sound present, benign, obese, no wide purple striae , no bruises EXTREMITIES: no edema, clubbing or cyanosis, no palpable hand tremors Skin: acanthosis nigricans -lab: tsh 0.29 , a1c is pending brain MRI (-) Assessment: uncontrolled IDDM with neuropathy abnormal thyroid functions /low TSH hypertensive encephalopathy plan : start lantus 10 units sq @ 9pm , first dose tonight stop Novolog start Novoloin R low dose coverage tid & hs f/u a1c obtain thyroid functions & abs Thank you for allowing me to participate in the care of the patient, we will follow with you. Lisa Joshua # [phone] office Fridays & Saturdays address: [address] [place] [address] ,phone # [phone] ,FAX [phone] Status: Acute (2) Hypertensive encephalopathy Status: Acute (3) Abnormal thyroid function test Status: Acute
--- NOTE | 2018-10-31 21:40 | CARD ---
APPROVED REPORT Date of service: 10/31/2018 EXAM: Two-dimensional and M-mode echocardiogram with Doppler and color Doppler. INDICATION CVA/TIA Congestive Heart Failure Palpitations RISK FACTORS Hypertension Diabetes 2D DIMENSIONS IVSd1.2 (0.7-1.1cm)Aortic Root (2D)3.1 (2.0-3.7cm) LVDd3.9 (3.9-5.9cm)PWd1.2 (0.7-1.1cm) LA Erxdec86 (18-58mL)LVDs2.2 (2.5-4.0cm) FS (%) 42.9 %LVEF (%)71.0 (>50%) LVEF (Spring's)60 %IVC0.00 cm M-Mode DIMENSIONS Left Atrium (MM)3.77 (2.5-4.0cm)IVSd1.37 (0.7-1.1cm) Aortic Root2.89 (2.2-3.7cm)LVDd3.46 (4.0-5.6cm) Aortic Cusp Exc.1.82 (1.5-2.0cm)PWd1.28 (0.7-1.1cm) FS (%) 39 %LVDs2.13 (2.0-3.8cm) TAPSE17.90 cmLVEF (%)70 (>50%) Mitral Valve MV E Zerbttkv64.7cm/sMV A Ymbwuzxt58.7cm/sE/A ratio0.7 TDI Lateral E' Peak V7.64cm/sMedial E' Peak V3.13cm/sE/Lateral E'8.9 E/Medial E'21.6 Tricuspid Valve TR Peak [id number]/sTR Peak Gr.[id number] LEFT VENTRICLE The left ventricle is normal size. There is mild concentric left ventricular hypertrophy. Left ventricle systolic function is normal. The Ejection Fraction is >70%. There is normal LV segmental wall motion. Tissue Doppler imaging reveals abnormal left ventricular diastolic dysfunction. RIGHT VENTRICLE The right ventricle is normal size. There is normal right ventricular wall thickness. The right ventricular systolic function is normal. ATRIA The left atrium size is normal. The right atrium size is normal. The interatrial septum is intact with no evidence for an atrial septal defect. AORTIC VALVE The aortic valve is normal in structure. No aortic regurgitation is present. There is no aortic valvular stenosis. There is no aortic valvular vegetation. MITRAL VALVE The mitral valve is normal in structure. There is no evidence of mitral valve prolapse. There is no mitral valve stenosis. There is no mitral valve regurgitation noted. TRICUSPID VALVE The tricuspid valve is normal in structure. There is mild tricuspid regurgitation. Right ventricular systolic pressure is estimated at 30-40 mmHg. There is mild pulmonary hypertension. PULMONIC VALVE The pulmonic valve is not well visualized. There is mild pulmonic valvular regurgitation. GREAT VESSELS The aortic root is normal in size. PERICARDIAL EFFUSION There is no significant pericardial effusion. <Conclusion> Left ventricle systolic function is normal. The Ejection Fraction is >70%. Hypertensive heart disease. Diastolic dysfunction. No aortic regurgitation is present. There is no mitral valve regurgitation noted. There is mild tricuspid regurgitation. There is mild pulmonary hypertension. There is mild pulmonic valvular regurgitation.
[2018-10-31] MEDS: (Novolin R) Insulin Human Regular 100 units/ml vial SC SCH (21:42)
[2018-10-31] MEDS: (Lantus) Insulin Glargine, Recombinant SC SCH (21:54)
--- NOTE | 2018-10-31 22:33 | PN ---
DATE: 10/31/2018 SUBJECTIVE: The patient is experiencing nausea and vomiting as well as abdominal discomfort. PHYSICAL EXAMINATION: VITAL SIGNS: Blood pressure 145/77, heart rate 85, temperature 98.2, and respirations 20. HEENT: Pale conjunctiva. CHEST: Clear. HEART: S1 and S2 regular. ABDOMEN: Mild periumbilical tenderness. No guarding. No rigidity. EXTREMITIES: No edema. LABORATORY DATA: Today's hemoglobin and hematocrit 8.1 and 26.3. White count 4.7, platelet count 268,000. Today's SMA-7: Sodium 133, potassium 4.1, chloride 96, CO2 of 31, glucose 264, BUN 18, and creatinine 0.6. Brain MRI was performed, and the reports are still pending. I did order abdomen and pelvic CT scan which was performed and the report is still pending. Amylase and lipase levels which are ordered are within normal limit. ASSESSMENT: 1. Uncontrolled hypertension. 2. Rule out acute cardiovascular accident. 3. Uncontrolled diabetes mellitus. 4. Hyperlipidemia. RECOMMENDATIONS: Continue hydralazine 50 mg twice a day, aspirin 81 mg once a day, Cozaar 100 mg once a day, Crestor at 40 mg once a day, subcutaneous heparin is on hold. Continue Lasix 20 mg intravenously twice a day, Lopressor 100 mg once a day. I will review echocardiographic study performed today. Follow up on the abdomen and pelvis CT scan as well as brain MRI. Bradley Sharma MD
--- NOTE | 2018-11-01 01:13 | HP ---
HISTORY OF PRESENT ILLNESS: This is a 53-year-old female with history of hypertension, hyperlipidemia, history of CVA recently. The patient came to my office, complaining of nausea and also with generalized weakness. The patient was found to have a blood pressure of 200/120 and heart rate of 90. The patient was advised to go to the emergency room which was done by EMS. The patient admits not talking his medications. SOCIAL HISTORY: No smoking. No alcohol abuse. FAMILY HISTORY: No inherited disease. ALLERGIES: NO KNOWN ALLERGY. REVIEW OF SYSTEMS: RESPIRATORY SYSTEM: Shortness of breath with exertion. CARDIOVASCULAR: The patient denies any chest pain. GASTROINTESTINAL: Positive for nausea and before the admission. GENITOURINARY: No dysuria. NEUROLOGIC: The patient had some weakness in the left side of the body. PHYSICAL EXAMINATION: GENERAL: The patient is alert and awake. VITAL SIGNS: Blood pressure was 200/110 and pulse 80. NECK: Supple. LUNGS: Clear. HEART: Regular rate and rhythm with positive murmur. ABDOMEN: Soft. EXTREMITIES: There is no edema. NEUROLOGIC: There is weakness as I mentioned to the left side. LABORATORY DATA: The patient had some tests done. WBC yesterday was 7.1, now it is 4.7; hemoglobin 9.1, today is 8.1; hematocrit 29.9 and today 26.3; and platelets is 260, and today is 268. PLAN: The patient was seen by Neuro. The patient did have an MRI of the brain and also medications ordered including furosemide, metoprolol, atorvastatin, losartan. Consult will be given by Dr. Sharma. The MRI is pending. Dalton Shine MD
[2018-11-01 07:28] LABS: EOS % 0.5 % (0.0-4.0); HEMOGLOBIN 8.6 g/dL (11.0-16.0); LYMPH # 1.2 K/uL (1.0-4.3); LYMPH % 28.2 % (20.0-40.0); MEAN CELL VOLUME 68.9 fL (81.0-99.0); MEAN CORPUSCULAR HGB CONC 30.5 g/dL (33.0-37.0); MEAN PLATELET VOLUME 8.8 fL (7.2-11.7); MONO # 0.3 K/uL (0.0-0.8); MONO % 6.8 % (0.0-10.0); NEUT # 2.8 K/uL (1.8-7.0); NEUT % 63.5 % (50.0-75.0); NRBC % 0.1 % (0.0-2.0); RBC 4.11 Mil/uL (3.80-5.20); RED CELL DISTRIBUTION WIDTH 19.9 % (11.5-14.5); WHITE BLOOD COUNT 4.4 K/uL (4.8-10.8)
[2018-11-01 07:54] LABS: ALB/GLOB RATIO 1.1 (1.0-2.1); ALBUMIN 3.8 g/dL (3.5-5.0); ALT/SGPT 11 U/L (9-52); AST/SGOT 19 U/L (14-36); BLOOD UREA NITROGEN 21 mg/dL (7-17); GFR NON-AFRICAN AMERICAN > 60
[2018-11-01 07:56] LABS: T4 7.26 ug/dL (5.5-11.0)
[2018-11-01 08:12] LABS: T3 1.33 nmol/L (1.49-2.60)
[2018-11-01 08:14] LABS: FERRITIN 4.5 ng/mL
[2018-11-01] MEDS: (Novolin R) Insulin Human Regular 100 units/ml vial SC SCH ×4 (08:32→21:47)
--- NOTE | 2018-11-01 16:19 | CT ---
Date of service: 10/31/2018 PROCEDURE: CT Abdomen and Pelvis without intravenous contrast HISTORY: Vomitting COMPARISON: None. TECHNIQUE: Contiguous images were obtained from the domes of the diaphragms to the upper thighs without the administration of intravenous contrast. Oral contrast was not administered. Radiation dose: Total exam DLP = 491.0 mGy-cm. This CT exam was performed using one or more of the following dose reduction techniques: Automated exposure control, adjustment of the mA and/or kV according to patient size, and/or use of iterative reconstruction technique. FINDINGS: LOWER THORAX: Cardiomegaly. Coronary arterial and valvular calcifications. Bilateral lower lobe atelectasis/scarring. No focal consolidation or pleural effusion. LIVER: Unremarkable. No gross lesion or ductal dilatation. GALLBLADDER AND BILE DUCTS: Unremarkable. PANCREAS: Unremarkable. No gross lesion or ductal dilatation. SPLEEN: Unremarkable. ADRENALS: Unremarkable. No mass. KIDNEYS AND URETERS: Unremarkable. No hydronephrosis. No solid mass. VASCULATURE: Unremarkable. No aortic aneurysm. Aortic atherosclerotic calcification present. BOWEL: Prominent amount of retained colonic stool. No obstruction. No gross mural thickening. APPENDIX: Unremarkable. Normal appendix. PERITONEUM: Unremarkable. No free fluid. No free air. LYMPH NODES: Unremarkable. No enlarged lymph nodes. BLADDER: Unremarkable. REPRODUCTIVE: Enlarged uterus with large right submucosal fibroid. BONES: No acute fracture. OTHER FINDINGS: None. IMPRESSION: No acute abdominal pelvic pathology. Findings as above.
--- NOTE | 2018-11-01 19:47 | PN ---
DATE: 11/01/2018 SUBJECTIVE: The patient is experiencing my mild vomiting. She denies any chest pain. OBJECTIVE: VITAL SIGNS: Blood pressure 160/72, heart rate 86, temperature 98.2, respirations 20. HEENT: Pale conjunctivae. CHEST: Clear. HEART: S1, S2, regular. EXTREMITIES: No edema. LABORATORY DATA: Today's hemoglobin and hematocrit 8.6 and 28.3, white count 4.4, platelet count 249,000. Today's blood sugar is 250. Brain MRI report, no acute or subacute brain infarct appreciated, multifocal chronic infarcts are identified in the left frontal lobe and basal ganglia, right frontal lobe and right parietal lobe as well as right temporoparietal junction. Abdomen and pelvis CT scan report is still pending. ASSESSMENT: 1. History of multiple cerebrovascular accidents. 2. Uncontrolled diabetes mellitus. 3. Abdominal pain with persistent nausea and vomiting. RECOMMENDATIONS: Continue hydralazine 50 mg twice a day. Hold aspirin for now. Continue Cozaar 100 mg once a day, Lopressor 5 mg once a day. Consider the GI evaluation. Bradley Sharma MD
[2018-11-01] MEDS: (Lantus) Insulin Glargine, Recombinant SC SCH (21:50)
[2018-11-02 07:42] LABS: BASO % 0.2 % (0.0-2.0); EOS % 0.9 % (0.0-4.0); HEMOGLOBIN 8.6 g/dL (11.0-16.0); LYMPH # 1.6 K/uL (1.0-4.3); LYMPH % 34.8 % (20.0-40.0); MEAN CELL VOLUME 68.8 fL (81.0-99.0); MEAN CORPUSCULAR HEMOGLOBIN 21.1 pg (27.0-31.0); MEAN CORPUSCULAR HGB CONC 30.7 g/dL (33.0-37.0); MEAN PLATELET VOLUME 7.9 fL (7.2-11.7); MONO # 0.4 K/uL (0.0-0.8); MONO % 8.9 % (0.0-10.0); NEUT # 2.5 K/uL (1.8-7.0); NEUT % 55.2 % (50.0-75.0); RBC 4.08 Mil/uL (3.80-5.20); RED CELL DISTRIBUTION WIDTH 19.8 % (11.5-14.5); WHITE BLOOD COUNT 4.5 K/uL (4.8-10.8)
[2018-11-02 07:50] LABS: ALB/GLOB RATIO 1.1 (1.0-2.1); ALBUMIN 3.7 g/dL (3.5-5.0); ALT/SGPT 7 U/L (9-52); AST/SGOT 13 U/L (14-36); BLOOD UREA NITROGEN 20 mg/dL (7-17); CALCIUM 8.9 mg/dl (8.6-10.4); GFR NON-AFRICAN AMERICAN > 60
[2018-11-02] MEDS: (Novolin R) Insulin Human Regular 100 units/ml vial SC SCH ×4 (07:56→21:56)
--- NOTE | 2018-11-02 08:14 | PN ---
DATE: 11/01/2018 SUBJECTIVE: Today, the patient is alert, awake, and oriented x3. Denies any nausea or vomiting. as before. PHYSICAL EXAMINATION: VITAL SIGNS: The patient has blood pressure of 156/77, pulse 80, respirations 20, and temperature 98.2. HEAD: Atraumatic and normocephalic. NECK: Supple. No JVD. LUNGS: Clear. HEART: Regular rate and rhythm. ABDOMEN: Soft. EXTREMITIES: There is no edema. NEUROLOGIC: There is left hemiparesis which and there is slurred speech. The patient also ____. LABORATORY DATA: The patient's blood work has shown WBC 4.4, hemoglobin 8.3, hematocrit 28.3, and platelets is 249. Chemistries showed sodium 134, potassium 3.8, chloride 98, bicarb is 31, BUN 21 creatinine 0.6. PLAN: . MRI of the brain was done and showed no acute or subacute brain infarct appreciated, multifocal chronic infarcts are identified in the left frontal lobe and basal ganglia, right frontal lobe and right parietal lobe as well as right temporoparietal junction. we are going to continue current treatment . Dalton Shine MD
--- NOTE | 2018-11-02 08:26 | CON ---
DATE: 11/01/2018 HISTORY OF PRESENT ILLNESS: This is a 56-year-old right-handed female with a past medical history of hypertension, diabetes, and . She presented to the emergency room yesterday complaining of vomiting,nausea episodes, dizziness that was worse and revealed by rash and not accompanied for the past several days. The patient was afebrile on presentation, however, blood pressure 200/100. It was negative for recent occasional dyspnea, visual stroke, nausea. The patient was admitted to Telemetry Monitoring Unit, no imaging was done. MRI showed that she has small chronic infarct that are old and not new in bilateral basal ganglia locations. There is no hemorrhage. There is no intracranial lesions. Echocardiogram was done and it showed EF of 70% and there is mild concentric left ventricular hypertrophy. The patient today is doing much better without any headache or any complaints. REVIEW OF SYSTEMS: As above. PHYSICAL EXAMINATION: The patient is alert, awake, oriented x3. Cranial nerves II through XII are grossly are normal. Pupils nonreactive to light. Motor tone and strength are normal. 5/5 sensory intact to fine touch and sensation. Gait is normal. There is no ataxia. Cerebellar exam does not show any symmetry. LABORATORY DATA: Labs are normal. Hemoglobin and hematocrit are low 8.6 and 28.3. Chemistry shows that she has glucose of 357, total T3 of 1.33. ASSESSMENT AND PLAN: This is a 53-year-old female with hypertensive encephalopathy and uncontrolled hypertension that is a great risk for stroke. She has had several strokes in the past. She also has severe hypothyroidism, as well as uncontrolled diabetes. At this point, there is no further neurological intervention noted. We will followup with neurologic on a p.r.n. basis. Thank you for this interesting consult. Radha De La Torre MD [facility]
--- NOTE | 2018-11-02 08:29 | CON ---
DATE: 10/30/2018 REASON FOR CONSULTATION: Hypertension. HISTORY OF PRESENT ILLNESS: The patient is a 53-year-old female who is referred from Dr. Shine office for admission because of hypertension. The patient has a history of stroke in the past according to Dr. Shine notes. The patient denies any chest pain or history of heart attack in the past. SOCIAL HISTORY: The patient is a nonsmoker, nondrinker. She is , lives with her family. MEDICATIONS: The patient stated that she has not taken her medications since last week and could not offer a reason for that. Current hospital medications, hydralazine 50 mg twice a day, Cozaar 100 mg once a day, Crestor 10 mg once a day, heparin 5000 units subcutaneously every 12 hours, Lasix 20 mg intravenous twice a day, Lopressor 100 mg daily. REVIEW OF SYSTEMS: No fever or chills. The patient did experience nausea and vomiting. PHYSICAL EXAMINATION: GENERAL: The patient is a middle-aged female who does not appear to be in any distress. VITAL SIGNS: Blood pressure 68/88, heart rate 90, temperature 98.3, respirations 20. HEENT: Pale conjunctivae. CHEST: Clear. HEART: Sounds regular. ABDOMEN: Soft. EXTREMITIES: No edema. . LABORATORY DATA: Hemoglobin and hematocrit 9.1 and 29.9. White count and platelet count are within normal limits. SMA-7 is within normal limits except for glucose of 270, chloride of 97, creatinine 0.4. One set of troponin is negative. Head CT scan without contrast, possible acute/subacute infarct in the right cerebellum. Recommend followup MRI. Chronic left frontal lobe infarct changes involving left basal ganglia. Chronic right posterior superior parietal subcortical and to a lesser degree deep white matter infarct. Associated dilatation of the left ventricle. Probable chronic right frontal subcortical infarct changes. Mild chronic periventricular white matter ischemic changes. Mild generalized volume loss. ASSESSMENT: 1. Uncontrolled hypertension. 2. Possible acute/subacute right cerebellar infarct. 3. Chronic left frontal lobe infarct involving the left basal ganglia and chronic right posterior superior parietal subcortical and deep white matter infarcts. 3. Anemia. 4. Uncontrolled diabetes mellitus. RECOMMENDATIONS: Continue subcutaneous heparin 5000 every 12 hours, Lasix 20 mg intravenous twice a day, Lopressor 100 mg once a day. Start aspirin at 81 mg once a day, Crestor 20 mg once a day. Obtain 12-lead EKG and an echocardiographic study. Obtain brain MRI. Bradley Sharma MD
--- NOTE | 2018-11-02 11:54 | CP.PCM.PN ---
<Susan Molina - Last Filed: 11/02/18 16:00> Subjective - Date & Time of Evaluation Date of Evaluation: 11/02/18 Time of Evaluation: 09:00 - Subjective Subjective: PGY 2- Neuro Progress Note for Dr. Jansen Patient seen and examined at bedside and in no acute distress. Patient has no complaints. Patient denies any headache, chest pain, abdominal pain, nausea, vomiting, constipation, or diarrhea. Patient has residual left sided LE weakness from a stroke in 2016. Patient uses a walker at home. Patient admits to being noncompliant with medications at home. Patient denies any side effects from the medications, but says she just does not take them. Objective - Vital Signs/Intake and Output Vital Signs (last 24 hours): Temp Pulse Resp BP Pulse Ox 98.0 F 75 20 129/73 98 11/02/18 07:00 11/02/18 07:00 11/02/18 07:00 11/02/18 10:06 11/02/18 07:00 - Medications Medications: Current Medications Dextrose (Dextrose 50% Inj) 0 ml IV STAT PRN; Protocol PRN Reason: Hypoglycemia Protocol Dextrose (Glutose 15) 0 gm PO ONCE PRN; Protocol PRN Reason: Hypoglycemia Protocol Furosemide (Lasix) 20 mg IVP Q12 [facility] Last Admin: 11/02/18 10:06 Dose: 20 mg Glucagon (Glucagen Diagnostic Kit) 0 mg IM STAT PRN; Protocol PRN Reason: Hypoglycemia Protocol Heparin Sodium (Porcine) (Heparin) 5,000 units SC Q12 [facility] Last Admin: 11/02/18 10:03 Dose: Not Given Hydralazine HCl (Apresoline) 50 mg PO BID [facility] Last Admin: 11/02/18 10:06 Dose: 50 mg Dextrose (Dextrose 5% In Water 1000 Ml) 1,000 mls @ 0 mls/hr IV .Q0M PRN; Protocol PRN Reason: Hypoglycemia Protocol Insulin Glargine (Lantus) 10 unit SC HS [facility] Last Admin: 11/01/18 21:50 Dose: 10 units Insulin Human Regular (Novolin R) 0 unit SC ACHS [facility]; Protocol Last Admin: 11/02/18 07:56 Dose: 2 units Losartan Potassium (Cozaar) 100 mg PO DAILY [facility] Last Admin: 11/02/18 10:06 Dose: 100 mg Metoprolol Tartrate (Lopressor) 100 mg PO [facility] Last Admin: 11/01/18 21:49 Dose: 100 mg Rosuvastatin Calcium (Crestor) 40 mg PO [facility] Last Admin: 11/01/18 21:51 Dose: 40 mg - Labs Labs: 11/02/18 07:24 11/02/18 07:24 - Constitutional Appears: Non-toxic, No Acute Distress - Head Exam Head Exam: ATRAUMATIC, NORMAL INSPECTION, NORMOCEPHALIC - Eye Exam Eye Exam: EOMI, Normal appearance - ENT Exam ENT Exam: Mucous Membranes Moist - Respiratory Exam Respiratory Exam: Clear to Ausculation Bilateral, NORMAL BREATHING PATTERN. absent: Rales, Rhonchi, Wheezes, Respiratory Distress, Stridor - Cardiovascular Exam Cardiovascular Exam: REGULAR RHYTHM, RRR, +S1, +S2 - GI/Abdominal Exam GI & Abdominal Exam: Soft, Normal Bowel Sounds. absent: Tenderness - Extremities Exam Extremities Exam: Normal Inspection - Neurological Exam Neurological Exam: Alert, Awake, Oriented x3 Neuro motor strength exam: Left Upper Extremity: 5, Right Upper Extremity: 5, Left Lower Extremity: 5, Right Lower Extremity: 4 - Psychiatric Exam Psychiatric exam: Flat Affect, Normal Mood - Skin Skin Exam: Intact, Normal Color, Warm Assessment and Plan - Assessment and Plan (Free Text) Assessment: 57 y/o F with PMHx uncontrolled HTN, IDDM, HLD, and CVA in 2016 with residual LLE weakness presented for nausea/vomiting, dizziness, and uncontrolled hypertension. Hypertensive Encephalopathy headache resolved maintain well controlled blood pressure head ct 10/30/18: possible acute/ subacute infarct right cerebellum. chronic L frontal lobe infarct changes involving left basal ganglia. probable chronic right frontal subcortical infarct changes brain MRI 10/31/18: no acute/ subactue infarction. multifocal chronic infarctions at L frontal lobe and basal ganglia, right frontal lobe and parietal lobe and temporoparietal junction PT for residual LLE weakenss Meds: * Lasix 20mg q12h * Hydralazine 50mg po BID * Losartan 100mg po daily * Metoprolol 100mg po HS * Crestor 40mg po HS * ASA 81mg po daily and Plavix 75mg po daily (for 3 weeks: to 11/16/18 then stop ASA and continue Plavix) Patient counseled on importance of compliance with medications Discussed with Dr. Jansen <Johnny Jansen - Last Filed: 11/04/18 11:23> Objective - Vital Signs/Intake and Output Vital Signs (last 24 hours): Temp Pulse Resp BP Pulse Ox 98.1 F 77 20 115/67 99 11/04/18 07:00 11/04/18 07:00 11/04/18 07:00 11/04/18 09:23 11/04/18 07:00 - Medications Medications: Current Medications Dextrose (Dextrose 50% Inj) 0 ml IV STAT PRN; Protocol PRN Reason: Hypoglycemia Protocol Dextrose (Glutose 15) 0 gm PO ONCE PRN; Protocol PRN Reason: Hypoglycemia Protocol Furosemide (Lasix) 20 mg IVP Q12 [facility] Last Admin: 11/04/18 09:23 Dose: 20 mg Glucagon (Glucagen Diagnostic Kit) 0 mg IM STAT PRN; Protocol PRN Reason: Hypoglycemia Protocol Heparin Sodium (Porcine) (Heparin) 5,000 units SC Q12 [facility] Last Admin: 11/04/18 09:26 Dose: Not Given Hydralazine HCl (Apresoline) 50 mg PO BID [facility] Last Admin: 11/04/18 09:23 Dose: 50 mg Dextrose (Dextrose 5% In Water 1000 Ml) 1,000 mls @ 0 mls/hr IV .Q0M PRN; Protocol PRN Reason: Hypoglycemia Protocol Insulin Glargine (Lantus) 18 unit SC [facility] Last Admin: 11/03/18 21:40 Dose: 18 units Insulin Human Regular (Novolin R) 0 unit SC ACHS [facility]; Protocol Last Admin: 11/04/18 08:27 Dose: 2 units Insulin Human Regular (Novolin R) 3 unit SC TIDPC [facility] Last Admin: 11/04/18 08:28 Dose: 3 units Losartan Potassium (Cozaar) 100 mg PO DAILY [facility] Last Admin: 11/04/18 09:23 Dose: 100 mg Metoprolol Tartrate (Lopressor) 100 mg PO [facility] Last Admin: 11/03/18 21:39 Dose: 100 mg Rosuvastatin Calcium (Crestor) 40 mg PO HS [facility] Last Admin: 11/03/18 21:36 Dose: 40 mg - Labs Labs: 11/03/18 06:24 11/02/18 07:24 Attending/Attestation - Attestation I have personally seen and examined this patient.: Yes I have fully participated in the care of the patient.: Yes I have reviewed all pertinent clinical information, including history, physical exam and plan: Yes Notes (Text): I agree with the assessment and plan. Likely hypertensive encephalopathy. Continue current management.
--- NOTE | 2018-11-02 21:10 | CP.PCM.PN ---
Subjective - Date & Time of Evaluation Date of Evaluation: 11/02/18 Time of Evaluation: 21:07 - Subjective Subjective: uncontrolled IDDM Objective - Vital Signs/Intake and Output Vital Signs (last 24 hours): Temp Pulse Resp BP Pulse Ox 98.6 F 89 20 145/75 98 11/02/18 16:18 11/02/18 20:50 11/02/18 16:18 11/02/18 21:02 11/02/18 16:18 - Medications Medications: Current Medications Dextrose (Dextrose 50% Inj) 0 ml IV STAT PRN; Protocol PRN Reason: Hypoglycemia Protocol Dextrose (Glutose 15) 0 gm PO ONCE PRN; Protocol PRN Reason: Hypoglycemia Protocol Furosemide (Lasix) 20 mg IVP Q12 [facility] Last Admin: 11/02/18 21:02 Dose: 20 mg Glucagon (Glucagen Diagnostic Kit) 0 mg IM STAT PRN; Protocol PRN Reason: Hypoglycemia Protocol Heparin Sodium (Porcine) (Heparin) 5,000 units SC Q12 [facility] Last Admin: 11/02/18 10:03 Dose: Not Given Hydralazine HCl (Apresoline) 50 mg PO BID [facility] Last Admin: 11/02/18 17:54 Dose: 50 mg Dextrose (Dextrose 5% In Water 1000 Ml) 1,000 mls @ 0 mls/hr IV .Q0M PRN; Protocol PRN Reason: Hypoglycemia Protocol Insulin Glargine (Lantus) 15 unit SC [facility] Insulin Human Regular (Novolin R) 0 unit SC ACHS [facility]; Protocol Last Admin: 11/02/18 17:51 Dose: Not Given Insulin Human Regular (Novolin R) 3 unit SC TIDPC [facility] Losartan Potassium (Cozaar) 100 mg PO DAILY [facility] Last Admin: 11/02/18 10:06 Dose: 100 mg Metoprolol Tartrate (Lopressor) 100 mg PO [facility] Last Admin: 11/02/18 21:06 Dose: 100 mg Rosuvastatin Calcium (Crestor) 40 mg PO [facility] Last Admin: 11/01/18 21:51 Dose: 40 mg - Labs Labs: 11/02/18 07:24 11/02/18 07:24 Assessment and Plan (1) Diabetes mellitus with diabetic neuropathy, with long-term current use of insulin Assessment & Plan: Endocrine consult reason for consult: uncontrolled diabetes Source: patient and chart review Ms. Raghavendra Gibson is 53 y/o admitted for hypertensive encephalopathy as per pt. has DM x 10 years (+) neuropathy , (-) retinopathy , (-) nephropathy (-) CAD (-) PVD s/p CVA 2016 outpatient diabetes management regimen : Lantus & metformin not sure of the dose or frequency inpatient diabetes management regimen: lispro scale blood glucose log :190-300 NO hypoglycemia Allergy NKDA Past medical history:HTN hyperlipidemia , CVA 2016 Past surgical history: C- section Psychiatry history: denies Social history: denies smoking , ETOH use or illicit drug use Family history: mother with dm ROS: Constitutional: denies fever, tiredness/weakness. HEENT: denies earache, change in voice .Respiratory: denies cough, sob . CVS :no chest pain, no palpitations . Abdomen: no abdominal pain, (-) nausea /vomiting, no change bowel movement. EDGE SAWYER : denies light-headedness, dizziness. Extremities: no edema, no tremors. Skin: no itching, no rash Physical exam Well-developed AAO x3 , ,NAD , VSS HEENT: norm cephalic, atraumatic, no lid lag , no exophthalmos NECK: supple, no palpable lymphadenopathy THYROID: no palpable thyromegaly, not tender CHEST: fair air entry, bilateral, CVS: S1,S2 ABDOMEN: bowel sound present, benign, obese, no wide purple striae , no bruises EXTREMITIES: no edema, clubbing or cyanosis, no palpable hand tremors Skin: acanthosis nigricans -lab: tsh 0.4 , free T4 1.24, free t3 2.7 , T3 1.33 , T4 7.2 tsh 0.29 , a1c 12.8 brain MRI (-) Assessment: uncontrolled IDDM with neuropathy euthyroid sick syndrom hypertensive encephalopathy cva plan : lantus 15units sq @ 9pm , increased today continue Novoloin R low dose coverage tid & hs start regular insulin 3 units tid with meals if eats more than 60% of the meal we will follow with you. Lisa Joshua # [phone] office Fridays & Saturdays address: [address] [place] [address] ,phone # [phone] ,FAX [phone] Status: Acute (2) Hypertensive encephalopathy Status: Acute (3) Euthyroid sick syndrome Status: Acute
[2018-11-02] MEDS ORDERED: (Lantus) Insulin Glargine, Recombinant SC SCH (22:00)
--- NOTE | 2018-11-02 22:31 | PN ---
DATE: 11/02/2018 SUBJECTIVE: The patient denies any chest pain. No abdominal pain. No nausea or vomiting. PHYSICAL EXAMINATION: VITAL SIGNS: Blood pressure 145/83, heart rate 83, temperature 98.6, respirations 20. HEENT: Pale conjunctivae. CHEST: Clear. HEART: S1, S2. Regular. ABDOMEN: Soft. EXTREMITIES: No edema. LABORATORY DATA: Today's hemoglobin and hematocrit 8.6 and 28.1, white count 4.5, platelet count 266,000. Today's SMA-7: Sodium 134, potassium 3.6, chloride 96, CO2 of 31, glucose 237, BUN 20, creatinine 0.6. Abdominopelvic CT scan: No acute findings. Brain MRI, no acute or subacute brain infarct. Multifocal chronic infarcts identified in the left frontal lobe and basal ganglia, right frontal lobe and right parietal lobe as well as right temporoparietal junction. ASSESSMENT: 1. History of multiple cerebrovascular accidents. 2. Uncontrolled diabetes mellitus. 3. Anemia. 4. Noncompliance. 5. Hypertension. RECOMMENDATIONS: Continue hydralazine 50 mg twice a day, Cozaar 100 mg daily, Crestor 40 mg once a day, Lasix 20 mg intravenously twice a day, Lopressor 100 mg daily. Bradley Sharma MD
--- NOTE | 2018-11-02 23:40 | PN ---
DATE: 11/02/2018 SUBJECTIVE: Today, the patient is alert and awake, but felt somewhat depressed. Denied any shortness of breath. No dizziness. The patient also felt weak. PHYSICAL EXAMINATION: VITAL SIGNS: The patient has blood pressure of 145/83, 145/75; pulse 89; respirations 18; temperature 98.6. NECK: Supple. No JVD. LUNGS: Clear. HEART: Regular rate and rhythm. Positive murmur. ABDOMEN: Soft and nontender. No palpable mass. EXTREMITIES: There is no edema. NEUROLOGIC: There is weakness in the left side of the body and also there is slight slurred speech. Also the patient's sugar is going from 285 to 384 until now. LABORATORY DATA: Sodium 134, potassium 3.6, chloride 96, bicarbonate 31, BUN 20, creatinine 0.6. PLAN: We are going to increase the insulin to 15 and Lantus to 15 and also going to continue to monitor the blood pressure. The case was discussed with, MASON Crawley, the nurse practitioner. Dalton Shine MD
[2018-11-03 06:37] LABS: BASO % 0.5 % (0.0-2.0); EOS # 0.1 K/uL (0.0-0.7); EOS % 1.3 % (0.0-4.0); HEMOGLOBIN 8.7 g/dL (11.0-16.0); LYMPH # 1.7 K/uL (1.0-4.3); LYMPH % 32.4 % (20.0-40.0); MEAN CELL VOLUME 68.8 fL (81.0-99.0); MEAN CORPUSCULAR HEMOGLOBIN 21.1 pg (27.0-31.0); MEAN CORPUSCULAR HGB CONC 30.6 g/dL (33.0-37.0); MEAN PLATELET VOLUME 8.1 fL (7.2-11.7); MONO # 0.4 K/uL (0.0-0.8); MONO % 7.7 % (0.0-10.0); NEUT # 3.1 K/uL (1.8-7.0); NEUT % 58.1 % (50.0-75.0); NRBC % 0.1 % (0.0-2.0); RBC 4.11 Mil/uL (3.80-5.20); RED CELL DISTRIBUTION WIDTH 19.5 % (11.5-14.5); WHITE BLOOD COUNT 5.3 K/uL (4.8-10.8)
[2018-11-03] MEDS: (Novolin R) Insulin Human Regular 100 units/ml vial SC SCH ×7 (08:38→21:41)
--- NOTE | 2018-11-03 18:31 | PN ---
DATE: 11/03/2018 SUBJECTIVE: The patient denies any chest pain, palpitation, or dizziness. She is in sinus rhythm on the monitor. PHYSICAL EXAMINATION: VITAL SIGNS: Blood pressure 112/66, heart rate 69, temperature 99, and respirations 18. HEENT: Pale conjunctivae. CHEST: Clear. HEART: S1 and S2 regular. EXTREMITIES: No edema. LABORATORY DATA: Today's hemoglobin and hematocrit 8.7 and 28.3. White count and platelet count are within normal limits. Today's blood sugars are 313, 282, and 397 respectively. ASSESSMENT: 1. History of multiple cerebrovascular accidents. 2. Uncontrolled diabetes mellitus. 3. Hypertension. RECOMMENDATIONS: Continue hydralazine 50 mg b.i.d., Cozaar 100 mg once a day, Lasix at 20 mg intravenously twice a day, and Lopressor 100 mg once a day. Discontinue telemetry. Bradley Sharma MD
[2018-11-03] MEDS ORDERED: (Lantus) Insulin Glargine, Recombinant SC SCH (22:00)
--- NOTE | 2018-11-03 23:08 | PN ---
DATE: 11/03/2018 SUBJECTIVE: Today, the patient is alert, awake, and oriented x3. She denies any dizziness today, shortness of breath and chest pain. The patient is having less appetite. PHYSICAL EXAMINATION: VITAL SIGNS: The blood pressure is currently 112/66, pulse 69, respirations 18, temperature 99 degrees Fahrenheit. NECK: Supple. No JVD. LUNGS: Clear. HEART: Regular rate and rhythm. ABDOMEN: Soft. Nontender. No palpable mass. EXTREMITIES: There is no edema. NEUROLOGIC: There is slight slurred speech and also some weakness in the left side of the body which . LABORATORY DATA: Labs showed: Glucose is 384, 282, 397, 377 . CBC: WBC 5.2, hemoglobin 8.7, hematocrit 28.3, platelet 257. PLAN: So, the plan is that we are going to increase the Lantus to 17 units. The case was discussed with Savanah Casey, the nurse practitioner. Dalton Shine MD
[2018-11-04 07:43] VITALS: RESP 20
[2018-11-04] MEDS: (Novolin R) Insulin Human Regular 100 units/ml vial SC SCH ×7 (08:27→21:23)
[2018-11-04] MEDS ORDERED: (Lantus) Insulin Glargine, Recombinant SC SCH ×2 (12:41→23:35)
--- NOTE | 2018-11-04 20:00 | PN ---
DATE: 11/04/2018 SUBJECTIVE: The patient denies any chest pain, headache, dizziness, or blurry vision. PHYSICAL EXAMINATION: VITAL SIGNS: Blood pressure 132/72, heart rate 82, temperature 97.6, respirations 20. HEENT: Pale conjunctivae. CHEST: Clear. HEART: S1 and S2, regular. EXTREMITIES: No edema. ASSESSMENT: 1. History of multiple cerebrovascular accidents. 2. Uncontrolled diabetes mellitus. 3. Hypertension. 4. Noncompliance. RECOMMENDATIONS: Continue hydralazine 50 mg two times daily, Cozaar 100 mg once a day, Crestor 40 mg once a day, subcutaneous heparin 5000 units every 12 hours, Lasix 20 mg intravenously twice a day, Lopressor 100 mg daily. Bradley Sharma MD
--- NOTE | 2018-11-04 23:37 | CP.PCM.PN ---
Subjective - Date & Time of Evaluation Date of Evaluation: 11/04/18 Time of Evaluation: 09:00 - Subjective Subjective: uncontrolled iddm Objective - Vital Signs/Intake and Output Vital Signs (last 24 hours): Temp Pulse Resp BP Pulse Ox 97.6 F 82 20 139/70 100 11/04/18 16:00 11/04/18 16:00 11/04/18 16:00 11/04/18 21:51 11/04/18 16:00 - Medications Medications: Current Medications Dextrose (Dextrose 50% Inj) 0 ml IV STAT PRN; Protocol PRN Reason: Hypoglycemia Protocol Dextrose (Glutose 15) 0 gm PO ONCE PRN; Protocol PRN Reason: Hypoglycemia Protocol Furosemide (Lasix) 20 mg IVP Q12 [facility] Last Admin: 11/04/18 21:51 Dose: 20 mg Glucagon (Glucagen Diagnostic Kit) 0 mg IM STAT PRN; Protocol PRN Reason: Hypoglycemia Protocol Heparin Sodium (Porcine) (Heparin) 5,000 units SC Q12 [facility] Last Admin: 11/04/18 21:50 Dose: 5,000 units Hydralazine HCl (Apresoline) 50 mg PO BID [facility] Last Admin: 11/04/18 17:35 Dose: 50 mg Dextrose (Dextrose 5% In Water 1000 Ml) 1,000 mls @ 0 mls/hr IV .Q0M PRN; Protocol PRN Reason: Hypoglycemia Protocol Insulin Glargine (Lantus) 22 unit SC [facility] Last Admin: 11/04/18 21:51 Dose: 22 units Insulin Human Regular (Novolin R) 0 unit SC ACHS [facility]; Protocol Last Admin: 11/04/18 21:23 Dose: Not Given Insulin Human Regular (Novolin R) 3 unit SC TIDPC [facility] Last Admin: 11/04/18 17:36 Dose: 3 units Losartan Potassium (Cozaar) 100 mg PO DAILY [facility] Last Admin: 11/04/18 09:23 Dose: 100 mg Metoprolol Tartrate (Lopressor) 100 mg PO HS [facility] Last Admin: 11/04/18 21:48 Dose: 100 mg Rosuvastatin Calcium (Crestor) 40 mg PO HS [facility] Last Admin: 11/04/18 21:50 Dose: 40 mg - Labs Labs: 11/03/18 06:24 11/02/18 07:24 Assessment and Plan (1) Diabetes mellitus with diabetic neuropathy, with long-term current use of insulin Assessment & Plan: Endocrine consult reason for consult: uncontrolled diabetes Source: patient and chart review Raghavendra Newman is 53 y/o admitted for hypertensive encephalopathy as per pt. has DM x 10 years (+) neuropathy , (-) retinopathy , (-) neph ropathy (-) CAD (-) PVD s/p CVA 2015 outpatient diabetes management regimen : Lantus & metformin not sure of the dose or frequency inpatient diabetes management regimen: lispro scale blood glucose log :200-300 NO hypoglycemia Allergy NKDA Past medical history:HTN hyperlipidemia , CVA 2016 Past surgical history: C- section Psychiatry history: denies Social history: denies smoking , ETOH use or illicit drug use Family history: mother with dm ROS: Constitutional: denies fever, tiredness/weakness. HEENT: denies earache, change in voice .Respiratory: denies cough, sob . CVS :no chest pain, no palpitations . Abdomen: no abdominal pain, (-) nausea /vomiting, no change bowel movement. 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 Extremities: no edema, no tremors. Skin: no itching, no rash Physical exam Well-developed AAO x3 , ,NAD , VSS HEENT: norm cephalic, atraumatic, no lid lag , no exophthalmos NECK: supple, no palpable lymphadenopathy THYROID: no palpable thyromegaly, not tender CHEST: fair air entry, bilateral, CVS: S1,S2 ABDOMEN: bowel sound present, benign, obese, no wide purple striae , no bruises EXTREMITIES: no edema, clubbing or cyanosis, no palpable hand tremors Skin: acanthosis nigricans -lab: tsh 0.4 , free T4 1.24, free t3 2.7 , T3 1.33 , T4 7.2 tsh 0.29 , a1c 12.8 brain MRI (-) Assessment: uncontrolled IDDM with neuropathy euthyroid sick syndrom hypertensive encephalopathy cva plan : lantus 20 units sq @ 9pm , continue Novoloin R low dose coverage tid & hs increase regular insulin 6 units tid with meals if eats more than 60% of the meal we will follow with you. Status: Acute (2) Hypertensive encephalopathy Status: Acute (3) Euthyroid sick syndrome Status: Acute
--- NOTE | 2018-11-05 01:07 | PN ---
DATE: 11/04/2018 SUBJECTIVE: Today, the patient is alert and awake, but blood pressure fluctuating and blood sugar is still high. PHYSICAL EXAMINATION: VITAL SIGNS: The patient had blood pressure greater than 165, now blood pressure 122/72, pulse is 82, respirations 20, and temperature 97.6. NECK: Supple. No JVD. LUNGS: Clear. HEART: Regular rate and rhythm. Positive murmur. ABDOMEN: Soft. Nontender. EXTREMITIES: No edema. NEUROLOGIC: Slurred speech and also right hemiparesis. LABORATORY DATA: The patient had some tests done that was from yesterday WBC is 5.3, hemoglobin 8.7, hematocrit 28.3, and platelet is 257. PLAN: The plan is that we are going to adjust the sugar which was at the range of 300, so we are going to increase the Lantus to 22 as he was taking before. The case was discussed with Savanah Casey, the nurse practitioner. Lab is ordered for tomorrow. Dalton Shine MD
[2018-11-05 06:54] LABS: BASO % 0.8 % (0.0-2.0); EOS % 0.9 % (0.0-4.0); HEMOGLOBIN 8.9 g/dL (11.0-16.0); LYMPH # 1.4 K/uL (1.0-4.3); LYMPH % 32.9 % (20.0-40.0); MEAN CELL VOLUME 68.4 fL (81.0-99.0); MEAN CORPUSCULAR HEMOGLOBIN 20.4 pg (27.0-31.0); MEAN CORPUSCULAR HGB CONC 29.8 g/dL (33.0-37.0); MEAN PLATELET VOLUME 8.7 fL (7.2-11.7); MONO # 0.4 K/uL (0.0-0.8); MONO % 8.7 % (0.0-10.0); NEUT # 2.5 K/uL (1.8-7.0); NEUT % 56.7 % (50.0-75.0); RBC 4.34 Mil/uL (3.80-5.20); RED CELL DISTRIBUTION WIDTH 19.1 % (11.5-14.5); WHITE BLOOD COUNT 4.3 K/uL (4.8-10.8)
[2018-11-05 06:56] LABS: BLOOD UREA NITROGEN 15 mg/dL (7-17); CALCIUM 8.6 mg/dl (8.6-10.4); GFR NON-AFRICAN AMERICAN > 60
[2018-11-05 07:52] VITALS: PULSE 76; TEMP 98; O2SAT 99
[2018-11-05] MEDS: (Novolin R) Insulin Human Regular 100 units/ml vial SC SCH ×4 (08:22→12:48)
[2018-11-05 10:19] VITALS: BP 117/68
--- NOTE | 2018-11-05 17:40 | PN ---
DATE: 11/05/2018 SUBJECTIVE: The patient denies any abdominal pain, chest pain, or shortness of breath. PHYSICAL EXAMINATION VITAL SIGNS: Blood pressure 153/82, heart rate 76, temperature 98, respirations 20. HEENT: Pale conjunctivae. CHEST: Clear. HEART: S1 and S2 regular. EXTREMITIES: No edema. LABORATORY DATA: Hemoglobin and hematocrit 8.9 and 29.7. White count 12.3. Platelet count 261,000. Today's SMA-7: Sodium 131, potassium 3.8, chloride 95, CO2 of 30, glucose 175, BUN 15, creatinine 0.5. ASSESSMENT: 1. Multiple cerebellar infarcts. 2. Hypertension. 3. Diabetes mellitus. 4. Noncompliance. RECOMMENDATIONS: The patient can be discharged from the cardiac point of view on hydralazine 50 mg twice a day, Cozaar 100 mg once a day, Crestor 20 mg once a day, Lopressor 100 mg once a day, insulin. Bradley Sharma MD
--- NOTE | 2018-11-06 00:25 | PN ---
DATE: 11/05/2018 SUBJECTIVE: Today, the patient is alert and awake. Denies any shortness of breath. No chest pain. No dizziness. The patient feels weak on the right side of the body which is old. PHYSICAL EXAMINATION: VITAL SIGNS: The patient has a blood pressure of 162/80, pulse 76, respiration is 20, temperature 98 degrees Fahrenheit. NECK: Supple. No JVD. LUNGS: Clear. HEART: Regular rate and rhythm. Positive extra systole. ABDOMEN: Soft. Positive tenderness in the epigastric area. EXTREMITIES: There is no edema. NEUROLOGIC: There is a right hemiparesis and slurred speech. LABORATORY DATA: The patient's blood tests done today showed WBC of 4.3, hemoglobin 8.9, hematocrit 29.7, and platelet 261. Chemistry showed that a sodium of 131, potassium 3.8, chloride 95, BUN 16, creatinine 0.5, and glucose is 175. It was noted that the now glucose value is from 203 to 175. ASSESSMENT AND PLAN: So the plan is that we are going to continue physical therapy and considered discharging the patient home. Dalton Shine MD
--- NOTE | 2018-11-06 04:16 | DS ---
HISTORY OF PRESENT ILLNESS AND HOSPITAL COURSE: This patient is a 53-year-old female with history of hypertension, diabetes, and CVA. The patient came to my office complaining of epigastric pain and nausea. The patient has vomited a day before. Also, the patient was found to have a blood pressure in the range of 190 to 200 systolic and the sugar was 505, so the patient was advised to go to the emergency room. The patient was brought in by EMS. The patient had a consult with Dr. Sharma, Cardiology and also with Dr. Lisa Chavira who is an creative guru and also the patient has consult with Dr. Radha De La Torre, neurologist. The patient was put on medications for blood pressure including hydralazine, losartan, metoprolol, and Lasix. Also, the patient was put on medication for diabetes including Lantus, Humalog and also Accu-Chek. The patient had different tests done including MRI of the brain, CT of the head, and echocardiogram. The patient was finally cleared by Radiology, and also the sugar was under control by using the insulin. Now, the patient is fully alert and oriented. The sugar is controlled. The blood sugar is 179. The patient may be able to be discharged home on medications. Dalton Shine MD
== END 2018-11-05 16:11 | disposition home or self-care (01) | DRG 22 ==
LOC: C.ER 15:32 → C.6T 19:30
PROVIDERS: ADMIT Specialist; ATTEND Specialist
DX: I67.4 Hypertensive encephalopathy (principal); E10.65 Type 1 diabetes mellitus with hyperglycemia; E10.40 Type 1 diabetes mellitus with diabetic neuropathy, unspecified; I69.354 Hemiplegia and hemiparesis following cerebral infarction affecting left non-dominant side; E03.9 Hypothyroidism, unspecified; I11.9 Hypertensive heart disease without heart failure; I51.7 Cardiomegaly; J45.909 Unspecified asthma, uncomplicated; E78.5 Hyperlipidemia, unspecified; D64.9 Anemia, unspecified; Z79.4 Long term (current) use of insulin; Z83.3 Family history of diabetes mellitus; Z91.14 Patient's other noncompliance with medication regimen; Z98.891 History of uterine scar from previous surgery; I69.328 Other speech and language deficits following cerebral infarction